=== PATIENT | male | born 1950 | race Caucasian/White ===

== ENCOUNTER → 2016-06-10 | Outpatient (CLI) | payer OTHER ==
[~2016-06-10] VITALS: Ht 175.3 cm; Wt 79.7 kg
[~2016-06-10] MED LIST: ACCURETIC 20-11 EACH PO; ANDROGEL5 GM TD; ASPIR 8181 MG PO; BACTRIM DS TAB1 EACH PO; BYSTOLIC20 MG PO; CARVEDILOL12.5 MG PO; CENTRUM SILVER1 EAC1; CLONIDINE0.1 PO; COUMADIN7.5 MG PO; CRESTOR10 MG PO; CYMBALTA30 MG PO; DILAUDID 4 MG TA4 M1 PO; ENDOCET 10-3251 EACH PO; FENOFIBRATE160 MG PO; GLUCOPHAGE XR750 MG PO; GLUCOPHAGE500 MG PO; HUMALOG100 UNIT/1 SUBQ; HYDROCHLOROTHIA25 M2 PO; INVOKANA300 MG PO; KEPPRA 500 MG500 M1 PO; LANTUS SUBQ; LASIX 40 MG TAB40 M2 PO; LIPITOR 20 MG T20 M1 PO; LISINOPRIL20 MG PO; LYRICA 75 MG CA75 MG PO; LYRICA PO; MIRTAZAPINE7.5 MG PO; MOBIC15 MG PO; MS CONTIN 30 MG30 MG PO; MS CONTIN15 MG PO; MS CONTIN30 MG PO; MS CONTIN60 MG PO; NORVASC 5 MG TAB5 MG PO; NOVOLIN N100 UNIT/1; NOVOLIN N100 UNIT/3 SUBQ; NOVOLIN R100 UNIT/1 SUBQ; NUCYNTA ER250 MG PO; NUCYNTA100 MG PO; OXYCODONE HCL5 M1 PO; OXYCONTIN40 MG PO; PERCOCET 10-321 EACH PO; PERCOCET 7.5-31 EACH PO; POTASSIUM20 PO; PRADAXA150 MG PO; PRADAXA75 MG PO; PROZAC40 MG PO; PYRIDIUM200 MG PO; ROBAXIN 750 MG750 M1 PO; SIMPLY SLEEP25 MG PO; SIMVASTATIN40 MG; SIMVASTATIN40 MG PO; SLO-NIACIN500 MG PO; VANCO IV; VOLTAREN GEL 1100 G1 TOP; ZOLOFT50 MG
--- NOTE | ~2016-06-10 | HPC ---
[facility] [place] [address] PAIN MANAGEMENT CONSULTATION Name: KENNEDY DIMAS ASH Room #: REG CL Melissa.#: [id number] Admission: 06/10/16 Attend Phys: Jostin Ruiz DO Discharge: Date of : 49 Report #: [id number] THIS REPORT FOR: //name// CC: RAQUEL Ruiz The patient is a 65-year-old gentleman, well known to the pain clinic, being treated for lumbar radiculopathy status post decompressive laminectomy, neuropathic pain component, requiring complex medication management for a number of years. Last seen in the pain clinic on 03/21/2016. The patient had had a spinal cord stimulator finally reimplanted at [facility] this past September. Historically, he had had a spinal cord stimulator implanted here at [facility], several years ago, but was promptly explanted due to an infection. The patient was very pleased with the coverage of this stimulator. Last I saw him, but apparently ultimately lost coverage. The [employer] generator itself apparently became dysfunctional. He had weaned off of MS Contin sometime ago, and had started doing water aerobics at the [facility] when I saw him last. We continued him on Lyrica 75 mg at bedtime, and attempted to wean the Percocet. He returns to pain clinic today, we had a moderately long visit, reviewing current issues. He was seen in the pain clinic from 11:02 to 11:30, greater than 50% of this time was spent counseling the patient and reviewing significant interval history. On 05/23/2016, approximately 2 weeks ago, the patient had the generator portion of the spinal cord stimulator replaced. They reimplanted a new [employer] rechargeable generator. The patient notes, he is having little bit trouble connecting with the charging device; however, feels that the coverage is better. Notes the pain remains problematic, rating an 8/10. He is still taking Percocet 10/325 up to 4 a day. But notes pain is primarily low back, aching sensation, exacerbated with walking, some relief lying down and sitting. PHYSICAL EXAMINATION: Shows a 65-year-old gentleman, BMI is 25.9 kilograms per meter squared. Blood pressure is little bit elevated at 182/70, pulse of 70, respirations are 20. Alert and oriented to person, place, and time. Judged to be a reasonable historian. Rises from the chair using the armrest. Gait is tandem. Lumbar flexion is limited. Lower extremity strength is diminished, but symmetric. Straight leg raise is negative. Axial back pain is problematic with motion. Functional assessment tool notes the patient is at high risk for opiate abuse, though he has been stable on baseline medication. He has weaned Lyrica from [address] [facility] [address] [place] [address] PAIN MANAGEMENT CONSULTATION Name: KENNEDY DIMAS Room #: REG APOORVA Fan#: [id number] Admission: 06/10/16 Attend Phys: Jostin Ruiz DO Discharge: Date of : 49 Report #: [id number] (two 75 mg tablets) to 1 at bedtime. He is desirous of continuing to wean agents as tolerated. We reviewed the fact that opiate medications are being used to provide analgesia adequate to support activities of daily living, not attempting to achieve a specific pain score on the 0-10 Visual Analog Scale. The current opiate medications are providing sufficient analgesia to allow the patient to participate in activities of daily living. The patient is not exhibiting any aberrant behavior suggestive of drug diversion. The patient is not having any adverse reactions to medications. The patient is not suffering from daytime somnolence or mental acuity changes. The patient is managing opiate-induced constipation with appropriate kimg-gzd-zgslpai agents and dietary considerations. The patient was counseled on concern for caution with operating a motor vehicle while using opiate medications. A physical exam was performed and the patient's functional status was evaluated. All patients with back pain were advised against the bed rest greater than 4 days and were advised to return to normal activities. Pain score assessment was noted and the treatment plan was reviewed with the patient. All current medications, both prescribed and OTC were reviewed and reconciled on the electronic medical record. Tobacco screening was accomplished and smoking cessation was advised when indicated. BMI was noted and diet/exercise modification was recommended for all patients following outside normal parameters. I reviewed with the patient today their responsibilities to safeguard prescription medications, reviewed their responsibility to utilize medications only as prescribed by the physician. They are to seek and receive pain medications only from 1 physician group ( [facility]). They are to use 1 pharmacy and keep the clinic informed if they change pharmacies. Their responsibilities include making followup visits in a timely fashion and to avoid abrupt discontinuation of medication usage. Their responsibilities further include bringing their medications (bottles from the pharmacy with residual pills) to the visit for possible confirmation of pill counts and the patient understands it is their responsibility to submit to random drug screens to ensure both that the medications prescribed are present, and that no other controlled substances are present. All prescriptions provided today were generated electronically. ASSESSMENT: Lumbar radiculopathy status post decompressive laminectomy, neuropathic pain requiring complex medication management. RECOMMENDATIONS: Discussion with the patient today about therapeutic options. I would like him to continue Percocet 10/325 four a day for one month, and gave him a second prescription to release in 4 weeks, decreasing the dose to 7.5/325 Percocet one tablet up to 4 times a day. [facility] [address] [place] [address] PAIN MANAGEMENT CONSULTATION Name: DIMASKENNEDY Herr Room #: REG CLI M..#: [id number] Admission: 06/10/16 Attend Phys: Jostin Ruiz DO Discharge: Date of : 49 Report #: [id number] We also talked about weaning off of Lyrica, he had been on 150 mg and dropped down to 75 mg at bedtime. He noted no significant change with this, but he is complaining of somewhat neuropathic related pain. With a desire to wean opiates, we have elected to try and perhaps increase this dose a little bit. I gave him a sample of 50 mg Lyrica tablets, a box of 21 such tablets. I told him to start taking 2 tablets at bedtime i.e., 100 mg at bedtime. If this affords a little better overall efficacy, and I allow this to continue to wean opiates, I also offered a prescription for Lyrica 100 mg tablets at bedtime. If, however, he finds no change going from 75 mg to 100 mg of Lyrica, I will have him simply continue the 75 mg tablet. We elected to follow up in 2 months for reevaluation. At that time, he will either be taking 75 or 100 mg Lyrica at bedtime and will be down to Percocet 7.5/325 four a day. Discharged in good and stable condition after a moderately prolonged visit, spent reviewing current issues. Seen from 11:02 to 11:30. Greater than 50% of the 25+ minute visit was spent counseling the patient. Discharged in good and stable condition. I encouraged to continue with range of motion, dietary discretion, exercise, and opiate wean. <ELECTRONICALLY SIGNED> By: Jostin Ruiz DO 06/12/16 0729 1231 13 Jostin Ruiz DO /nt
[2016-06-10 10:50] VITALS: BP 182/70
== END | disposition home or self-care (01) ==
LOC: PAIN 05-31 07:12
DX: M54.16 Radiculopathy, lumbar region (principal); G89.29 Other chronic pain; Z87.891 Personal history of nicotine dependence; Z98.890 Other specified postprocedural states

== ENCOUNTER → 2016-09-19 | Outpatient (CLI) | payer OTHER ==
[~2016-09-19] VITALS: Ht 175.3 cm; Wt 124.7 kg
[~2016-09-19] MED LIST changes: +FISH OIL 1,001000 M2 PO; +NORCO 10-325 T1 EACH PO; +TESTOSTERO200 MG/1 M IM
--- NOTE | ~2016-09-19 | HPC ---
[facility] [address] [place] [address] PAIN MANAGEMENT CONSULTATION Name: KENNEDY DIMAS Room #: REG [facility] MIndio.#: [id number] Admission: 09/19/16 Attend Phys: Jostin Ruiz DO Discharge: Date of : 49 Report #: [id number] THIS REPORT FOR: //name// CC: RAQUEL Ruiz The patient is a pleasant 65-year-old gentleman long known to the pain clinic who has been treated for lumbar radiculopathy status post decompressive laminectomy, neuropathic pain component requiring complex medication management. He had had a spinal cord stimulator at one point a decade ago and had a fairly significant infection, had to have it explanted. He had been managed with high dose opiates. Ultimately, progressed to have a spinal cord stimulator implanted at [facility] ([employer] spinal cord stimulator). He thinks that this is helpful. It is in a "burst" high-frequency mode. He really does not feel a great deal of stimulation, but does think it is helping with his radicular pain. He is having primarily ongoing axial back pain. We had weaned off of much higher loads of opiates subsequent to the implantation. He had been taking MS Contin 30 mg 3 times a day with Nucynta 100 mg 4 times a day. Last visit was 06/10/2016. The patient returns to pain clinic today. We had a moderately prolonged visit from 14:28-14:55, greater than 50% of the 25+ minute visit was spent counseling the patient. He is having some increasing depression issues. Notes pain is quite problematic, rates it 8 or 9 on a 0-10 visual analog scale across the low back. He remains obese, BMI has been gradually escalating, he is up to 40.6 kilograms per meter squared. Poor glucose control with hemoglobin A1c running in the 8's. PHYSICAL EXAMINATION: Shows a 65-year-old gentleman, again 175 cm and 124 kilograms. Blood pressure shows modest systolic hypertension 148/67, pulse 104 , respirations 16. Alert and oriented to person, place and time, judged to be reasonable historian. A little bit of a flat affect today. Rises from chair using armrest. Diffuse tenderness across the low back though gait is tandem. No discrete trigger points are noted. He is tender across the low back, a little more on the right flank where the spinal cord stimulator IPG resides. Lower extremity strength is diminished, but symmetric. Straight leg raise is negative. We reviewed the fact that opiate medications are being used to provide analgesia adequate to support activities of daily living, not attempting to achieve a specific pain score on the 0-10 Visual Analog Scale. The current opiate medications are providing sufficient analgesia to allow the patient to participate in activities of daily living. The patient is not exhibiting any aberrant behavior suggestive of drug diversion. The patient is not having any adverse reactions to medications. The patient is not suffering from daytime somnolence or mental acuity changes. The patient is managing opiate-induced constipation with appropriate fnut-kaf-ukrbwbi agents and dietary [address] [address] PAIN MANAGEMENT CONSULTATION Name: KENNEDY DIMAS Room #: REG CLI Mita#: [id number] Admission: 09/19/16 Attend Phys: Jostin Ruiz DO Discharge: Date of : 49 Report #: [id number] considerations. The patient was counseled on concern for caution with operating a motor vehicle while using opiate medications. A physical exam was performed and the patient's functional status was evaluated. All patients with back pain were advised against the bed rest greater than 4 days and were advised to return to normal activities. Pain score assessment was noted and the treatment plan was reviewed with the patient. All current medications, both prescribed and OTC were reviewed and reconciled on the electronic medical record. Tobacco screening was accomplished and smoking cessation was advised when indicated. BMI was noted and diet/exercise modification was recommended for all patients following outside normal parameters. I reviewed with the patient today their responsibilities to safeguard prescription medications, reviewed their responsibility to utilize medications only as prescribed by the physician. They are to seek and receive pain medications only from 1 physician group ( [facility]). They are to use 1 pharmacy and keep the clinic informed if they change pharmacies. Their responsibilities include making followup visits in a timely fashion and to avoid abrupt discontinuation of medication usage. Their responsibilities further include bringing their medications (bottles from the pharmacy with residual pills) to the visit for possible confirmation of pill counts and the patient understands it is their responsibility to submit to random drug screens to ensure both that the medications prescribed are present, and that no other controlled substances are present. All prescriptions provided today were generated electronically. ASSESSMENT: Chronic pain syndrome requiring complex medication management in a 65-year-old gentleman status post lumbar decompressive laminectomy with chronic axial back pain, lumbar radiculopathy, though the latter component reasonably well controlled with spinal cord stimulator. RECOMMENDATION: Discussion with the patient today about therapeutic option. He has been on Percocet for some time now, I had weaned from 10-7.5/325 four a day. We have been titrating Lyrica up and down, ultimately looks like 100 mg is giving him some good efficacy. Discussion about ongoing pain concerns. We have elected to trial an opiate rotation, we will switch from Percocet 7.5/325 to hydrocodone 10/325. I have taken the liberty of writing for 2 months of this medication. I have him follow up in about 3 weeks; if it is not efficacious, we will probably go back to Percocet or follow up in 2 months if he is doing reasonably well with current medication. We did spend a good deal of time counseling the patient regarding anxiety and depression associated with just overall sense of loss from functional [facility] [address] [place] [address] PAIN MANAGEMENT CONSULTATION Name: KENNEDY DIMAS ASH Room #: REG CLTrixie Torres.#: [id number] Admission: 09/19/16 Attend Phys: Jostin Ruiz DO Discharge: Date of : 49 Report #: [id number] standpoint. Encouraged the patient to continue with activities that bring garrett including golfing and interacting with his grandchildren. Discharged in good and stable condition. <ELECTRONICALLY SIGNED> By: Jostin Ruiz DO 09/20/16 1308 0737 0801 Jostin Ruiz DO /nt
[2016-09-19 14:22] VITALS: BP 148/67
== END ==
LOC: PAIN 07:33
DX: M54.16 Radiculopathy, lumbar region (principal); M96.1 Postlaminectomy syndrome, not elsewhere classified; I10 Essential (primary) hypertension; G89.4 Chronic pain syndrome; Z87.891 Personal history of nicotine dependence

== ENCOUNTER → 2016-12-19 | Outpatient (CLI) | payer OTHER ==
[~2016-12-19] VITALS: Ht 175.3 cm; Wt 126.9 kg
[~2016-12-19] MED LIST changes: +OXYCONTIN15 MG PO; +PERCOCET 5-3251 EACH PO; +PERCOCET PO; +XARELTO20 MG PO
--- NOTE | ~2016-12-19 | HPC ---
[facility] [address] [place] [address] PAIN MANAGEMENT CONSULTATION Name: KENNEDY DIMAS Room #: REG CL Melissa.#: [id number] Admission: 12/19/16 Attend Phys: Jostin Ruiz DO Discharge: Date of : 49 Report #: [id number] THIS REPORT FOR: //name// CC: RAQUEL Ruiz The patient is a very pleasant 65-year-old gentleman, had long been treated by the pain clinic for symptomatic lumbar radiculopathy status post decompressive laminectomy with ongoing neuropathic pain. Somewhat lost to follow up. He had a spinal cord stimulator reimplanted at [facility] ([employer] stimulator) in September of 2015. Returned to the pain clinic May. We have been treating with some mild opiate analgesics. He had prior been on fairly high dose opiates, MS Contin 30 mg 3 times a day and Nucynta 100 mg 4 times a day. At last visit 09/19/2016, the patient was simply taking some Percocet 7.5/325, it was losing efficacy, I rotated the hydrocodone 10/325. He returns to pain clinic today noting pain continues to be problematic, rates the pain at 7-8 on a VAS. Since we saw him last, he was hospitalized for DVT in November at an [facility]. Notes pain is exacerbated with walking and standing, gets some relief sitting or lying. Continue to use a spinal cord stimulator. He has recently started using a walker since the hospitalization for DVT. He uses it to offload some pain from the back. PHYSICAL EXAMINATION: Shows obese 65-year-old gentleman, BMI is 41.3 kilograms per meter squared. Vital signs stable as noted in the EMR. Rises from chair using the armrests, antalgic gait, diffuse tenderness across the low back. Lower extremity strength is diminished, but symmetrically so. RECOMMENDATION: We discussed his therapeutic options at length today. In fact, he was seen from approximately 10:30-11:00 a.m., greater than 30% of this time was spent counseling the patient. He is not desirous of going back to MS Joana, felt that morphine caused significant cognitive impairment. I am loathe to escalate opiate use, but he does have ongoing pain needs that are not being met at present. Lyrica 100 mg at bedtime seems to be efficacious, he is using 7.5/325 Percocet 4 a day with nominal efficacy. After discussion today, we have elected to a trial OxyContin 15 mg b.i.d. with Percocet 5/325 for breakthrough pain. Limit 120 tablets for 30 days. I reviewed the opiate risk including habituation, tolerance, daytime somnolence, mental acuity changes, constipation. 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 I have taken the liberty of writing for 2 months of the revised medication [address] [address] PAIN MANAGEMENT CONSULTATION Name: KENNEDY DIMAS Room #: REG APOORVA Fan#: [id number] Admission: 12/19/16 Attend Phys: Jostin Ruiz, DO Discharge: Date of : 49 Report #: [id number] (OxyContin 15 mg b.i.d. with Percocet 5/325 up to 4 a day). Follow up in 2 months. If however, agents are not working we will have him follow up in 3 weeks and bring the "4-week release" prescription back. We will likely trial Nucynta extended release as the long-acting opiate at that point if indicated. <ELECTRONICALLY SIGNED> By: Jostin Ruiz DO 12/23/16 0746 1543 [id number] Jostin Ruiz DO /nt
[2016-12-19 11:08] VITALS: BP 125/64
== END | disposition home or self-care (01) ==
LOC: PAIN 11-15 11:10
DX: M54.16 Radiculopathy, lumbar region (principal); G89.29 Other chronic pain; G40.909 Epilepsy, unspecified, not intractable, without status epilepticus; Z98.890 Other specified postprocedural states; Z79.891 Long term (current) use of opiate analgesic; Z87.891 Personal history of nicotine dependence; Z79.82 Long term (current) use of aspirin; Z79.899 Other long term (current) drug therapy; Z79.4 Long term (current) use of insulin

== ENCOUNTER → 2017-02-20 | Outpatient (CLI) | payer OTHER ==
[~2017-02-20] VITALS: Ht 175.3 cm; Wt 127.5 kg
--- NOTE | ~2017-02-20 | HPC ---
[facility] [address] [place] [address] PAIN MANAGEMENT CONSULTATION Name: JUDIEKENNEDY ALEMAN Room #: REG CL M..#: [id number] Admission: 02/20/17 Attend Phys: Jostin Ruiz DO Discharge: Date of : 49 Report #: [id number] THIS REPORT FOR: //name// CC: RAQUEL Ruiz The patient is a 66-year-old gentleman well known to pain clinic, being treated for neuropathic pain, chronic pain syndrome requiring high-risk complex medication management status post lumbar decompressive laminectomy. He has a spinal cord stimulator in place, placed in at [facility]. He is using a walker for the past 4-5 months, nearly 100% of the time (states he does get up to go to the bathroom without the walker, but uses it pretty much predominantly otherwise). Uses the stimulator 24 hours a day, had been programmed to high frequency hence no paresthesias, has to charge it weekly. He has been using OxyContin 15 mg 1 in the morning and Percocet 5/325 four a day. I had written for b.i.d., OxyContin for some reason the pharmacist has only filled 30 tablets (?). He says he has become much more sedentary. Pain is primarily in primarily low back, right greater than left hips. PHYSICAL EXAMINATION: Shows 66-year-old gentleman, BMI is up to 41.5 kilograms per meter squared. He is alert and oriented to person, place and time. 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 This is healing nicely. Blood pressure 154/64, pulse 73, respirations are 20. Rises from chair using armrests. Diffuse antalgic gait, general deconditioning. We reviewed the fact that opiate medications are being used to provide analgesia adequate to support activities of daily living, not attempting to achieve a specific pain score on the 0-10 Visual Analog Scale. The current opiate medications are providing sufficient analgesia to allow the patient to participate in activities of daily living. The patient is not exhibiting any aberrant behavior suggestive of drug diversion. The patient is not having any adverse reactions to medications. The patient is not suffering from daytime somnolence or mental acuity changes. The patient is managing opiate-induced constipation with appropriate odgr-vhc-bldsawf agents and dietary considerations. The patient was counseled on concern for caution with operating a motor vehicle while using opiate medications. A physical exam was performed and the patient's functional status was evaluated. All patients with back pain were advised against the bed rest greater than 4 days and were advised to return to normal activities. Pain score assessment was noted and the treatment plan was reviewed with the patient. All current medications, both prescribed and OTC were reviewed and reconciled on the electronic medical record. Tobacco screening was accomplished and smoking cessation was advised when indicated. BMI was noted and diet/exercise modification was recommended for all patients following outside normal parameters. I reviewed with the patient today their responsibilities to safeguard prescription medications, reviewed their responsibility to utilize medications [address] [address] PAIN MANAGEMENT CONSULTATION Name: KENNEDY DIMAS Room #: REG APOORVA Fan#: [id number] Admission: 02/20/17 Attend Phys: Jostin Ruiz DO Discharge: Date of : 49 Report #: [id number] only as prescribed by the physician. They are to seek and receive pain medications only from 1 physician group ( [facility]). They are to use 1 pharmacy and keep the clinic informed if they change pharmacies. Their responsibilities include making followup visits in a timely fashion and to avoid abrupt discontinuation of medication usage. Their responsibilities further include bringing their medications (bottles from the pharmacy with residual pills) to the visit for possible confirmation of pill counts and the patient understands it is their responsibility to submit to random drug screens to ensure both that the medications prescribed are present, and that no other controlled substances are present. All prescriptions provided today were generated electronically. ASSESSMENT: Status post decompressive lumbar laminectomy, neuropathic pain requiring high-risk complex medication management. RECOMMENDATIONS: 1. Buccal swap today, no aberrant behavior suggestive for drug diversion, simply complying with opiate consent to treat contract. 2. Long discussion with the patient today about increasing physical activity. Suggest he start with water aerobics. The [facility] is actually fairly close to his home. I talked about getting in the water and simply walking for 20-30 minutes. This will hopefully start reconditioning patient. He is generally deconditioned and is becoming weaker with his sedentary lifestyle. If required, we can increase his opiate analgesics some, is taking Percocet 5/325 up to 4 a day; however, I would like to try and keep that p.r.n. medicine unchanged. We will encourage pharmacy to fill the prescription as ordered, providing him with OxyContin 15 mg 60 tablets to take b.i.d. This will affectively increase his overall opiate load from 35 to 50 back to what I have prescribed and assume he was taking. We will continue Lyrica unchanged 100 mg at bedtime. The patient was discharged in good and stable condition. Follow up in 2 months for reevaluation. <ELECTRONICALLY SIGNED> By: Jostin Ruiz DO 02/21/17 0657 1532 46 Jostin Ruiz DO /sujatha
[2017-02-20 11:04] VITALS: BP 154/64
== END | disposition home or self-care (01) ==
LOC: PAIN 07:04
DX: Z76.0 Encounter for issue of repeat prescription (principal); G89.4 Chronic pain syndrome; Z98.890 Other specified postprocedural states; Z79.891 Long term (current) use of opiate analgesic; Z85.828 Personal history of other malignant neoplasm of skin; Z97.8 Presence of other specified devices; Z87.891 Personal history of nicotine dependence; Z79.82 Long term (current) use of aspirin; Z79.899 Other long term (current) drug therapy; Z79.4 Long term (current) use of insulin

== ENCOUNTER → 2017-06-30 | Outpatient (CLI) | payer OTHER ==
[~2017-06-30] VITALS: Ht 175.3 cm; Wt 127.0 kg
[~2017-06-30] MED LIST changes: +AMLODIPINE BESY10 MG PO; +BUPROPION HCL150 M1 PO; +CARDURA4 MG PO; +HYDRALAZINE HC100 MG PO; +KLOR-CON M2020 MEQ PO; +METOLAZONE 2.52.5 M1 PO; +OXYCODONE HCL E20 MG PO
--- NOTE | ~2017-06-30 | HPC ---
[facility] [place] [address] PAIN MANAGEMENT CONSULTATION Name: JUDIEKENNEDY ALEMAN [facility].#: [id number] Admission: 06/30/17 Attend Phys: Jostin Ruiz DO Discharge: Date of : 49 Report #: [id number] THIS REPORT FOR: //name// CC: RAQUEL Ruiz The patient is a 66-year-old gentleman well known to the pain clinic being treated for neuropathic pain, chronic pain syndrome, axial and lumbar radicular pain, status post decompressive laminectomy requiring high risk complex medication management. Last seen in the pain clinic 04/23/2017. He was seen by my partner, Dr. Reynaldo Hobson, continued on Percocet 5/325 up to 120 tablets for 30 days and OxyContin 15 mg b.i.d. The patient returns to the pain clinic today. He had been trying to work out [employer], but states that in the past 3 or 4 months, the pain has been getting worse. He does use a walker to get around. Spinal cord stimulator implanted at [facility] has been somewhat effective. He has been struggling with total body edema, worse in the lower extremities. Apparently, it was felt that his Plavix was the primary culprit. This was stopped. He was converted over to Coumadin. Edema is getting better, but still present. Last drug screen accomplished on 06/26/2015 was positive for prescribed medications. Returns to the pain clinic today. Again noting pain seems to be getting a little bit worse. Rates his subjective pain score 8 today and varies from 6-9. He has significant arthritis affecting bilateral upper and lower extremities (osteoarthritis). He is overweight with a BMI of 41.3 kilograms per meter squared. Vital signs are otherwise stable. He has not fallen in the last 3 months. He is using a walker. Again he has been rotated warfarin for his anticoagulant. He is hypertensive, medication list was reconciled. Opiate risk assessment tool does score the patient in the high risk category though he has been stable on current medications. We did elect to repeat a buccal drug swab today given that it has been greater than a year since our last random study. The patient rises from chair using armrest, antalgic gait, diffuse tenderness across the low back. Lower extremity strength is symmetric. Straight leg raise is negative bilaterally. Diffuse tenderness across the low back. We reviewed the fact that opiate medications are being used to provide analgesia adequate to support activities of daily living, not attempting to achieve a specific pain score on the 0-10 Visual Analog Scale. The current opiate medications are providing sufficient analgesia to allow the patient to participate in activities of daily living. The patient is not exhibiting any aberrant behavior suggestive of drug diversion. The patient is not having any adverse reactions to medications. The patient is not suffering from daytime somnolence or mental acuity changes. The patient is managing opiate-induced [address] [address] PAIN MANAGEMENT CONSULTATION Name: KENNEDY DIMAS Room #: REG APOORVA Fan#: [id number] Admission: 06/30/17 Attend Phys: Jostin Ruiz DO Discharge: Date of : 48 Report #: [id number] constipation with appropriate phye-peb-nfehdfi agents and dietary considerations. The patient was counseled on concern for caution with operating a motor vehicle while using opiate medications. A physical exam was performed and the patient's functional status was evaluated. All patients with back pain were advised against the bed rest greater than 4 days and were advised to return to normal activities. Pain score assessment was noted and the treatment plan was reviewed with the patient. All current medications, both prescribed and OTC were reviewed and reconciled on the electronic medical record. Tobacco screening was accomplished and smoking cessation was advised when indicated. BMI was noted and diet/exercise modification was recommended for all patients following outside normal parameters. I reviewed with the patient today their responsibilities to safeguard prescription medications, reviewed their responsibility to utilize medications only as prescribed by the physician. They are to seek and receive pain medications only from 1 physician group ( [facility]). They are to use 1 pharmacy and keep the clinic informed if they change pharmacies. Their responsibilities include making followup visits in a timely fashion and to avoid abrupt discontinuation of medication usage. Their responsibilities further include bringing their medications (bottles from the pharmacy with residual pills) to the visit for possible confirmation of pill counts and the patient understands it is their responsibility to submit to random drug screens to ensure both that the medications prescribed are present, and that no other controlled substances are present. All prescriptions provided today were generated electronically. ASSESSMENT: Axial back pain, lumbar radiculopathy, status post decompressive laminectomy, neuropathic pain requiring high risk complex medication management. The patient with spinal cord stimulator in place. RECOMMENDATION: 1. Continue walker and try to increase physical activity, perhaps even return to the [employer]. 2. Continue Percocet 5/325 for breakthrough pain. We will increase OxyContin 15 mg b.i.d. to 20 mg b.i.d., increasing from 30 to 40 mg, a mere 33% increase in his overall opiate load. This will enable him to take up to 50 mg oxycodone or 75 mEq of morphine a day. He had been on much higher doses in the past. We will continue Lyrica 100 mg t.i.d. I have taken the liberty of writing for 2 months of current medication. Follow up at that time, earlier if needed. <ELECTRONICALLY SIGNED> By: Jostin Ruiz DO 07/02/17 0724 [id number] Jostin Ruiz DO /nt
[2017-06-30 13:31] VITALS: BP 155/64
== END ==
LOC: PAIN 07:39
DX: M54.16 Radiculopathy, lumbar region (principal); Z98.890 Other specified postprocedural states

== ENCOUNTER → 2017-09-01 | Outpatient (CLI) | payer OTHER ==
[~2017-09-01] VITALS: Ht 175.3 cm; Wt 124.9 kg
[~2017-09-01] MED LIST changes: -KLOR-CON M2020 MEQ PO
--- NOTE | ~2017-09-01 | HPC ---
[facility] [place] [address] PAIN MANAGEMENT CONSULTATION Name: JUDIEKENNEDY ALEMAN Room #: REG CL MCash.#: [id number] Admission: 09/01/17 Attend Phys: Jostin Ruiz DO Discharge: Date of : 49 Report #: [id number] THIS REPORT FOR: //name// CC: RAQUEL Ruiz DATE OF SERVICE: 09/01/2017 The patient is a very pleasant 66-year-old gentleman, well known to pain clinic, treated for neuropathic pain, chronic pain syndrome, axial back pain status post lumbar decompressive laminectomy, requiring high risk complex medication management. He was last seen in the pain clinic 06/30/2017. The patient was continued on his baseline medication including long acting oxycodone, increased from 15 to 20 mg b.i.d. back in June. Percocet 5/325 one tablet 3-4 times a day, 100 tablets for 30 days. Last random drug screen 06/30/2017, was positive for prescribed medications including oxycodone and gabapentin. He returns to pain clinic today. He notes current medications are enable him to participate in some activities with general improvement of pain, notes his pain is an 8 on a VAS today, is exacerbated with weather changes. He was questioning today if a fair bit of his back pain was coming from facet DJD, whether or not it would be reasonable to consult a filler mixer. I am unaware of what further treatments the filler mixer may offer; however, I certainly think that there is no downside in referring to rheumatology to get another opinion on possible disease-modifying therapeutic intervention for axial back pain in this 66-year-old gentleman who has had a lumbar fusion, has had a stormy course, having had a spinal cord stimulator implanted by myself now some 8 years ago with what turned out to be a sterile abscess prompting explantation. He ultimately had the spinal cord stimulator reimplanted by [facility] 1-2 years ago. He has been stable on low dose opiate enable him to participate in activities of daily living, though again does note he is fairly sedentary overall. Notes pain is primarily in the thoracolumbar area mid to low back, diffuse low back pain, right greater than left. He struggles with lower extremity pretibial edema. We have tried to wean his dose of Lyrica, though 100 mg at bedtime seems to be quite helpful for his ongoing chronic pain issues. PHYSICAL EXAMINATION: Shows a 66-year-old gentleman, morbidly obese with a BMI of 40.7 kg/m2 (5 feet 9 inches, 275 pounds). Blood pressure 144/70, pulse 68, respirations are 20, room air oxygen saturation 96%. Subjective pain score is 8 on a VAS. He has not fallen in the last 3 months, though he does use a walker to help offload back pain. He is anticoagulated with Coumadin. He is hypertensive, medication list was reconciled today. His opiate consent to treat [address] [address] PAIN MANAGEMENT CONSULTATION Name: KENNEDY DIMAS Room #: REG APOORVA Fan#: [id number] Admission: 09/01/17 Attend Phys: Jostin Ruiz DO Discharge: Date of : 48 Report #: [id number] contract was reviewed today. The patient rises from chair using armrest, moderately antalgic gait. Lower extremity strength is generally preserved, again +2-3 pretibial edema bilaterally. Straight leg raise is negative. Axial back pain with no discrete trigger points. We have no recent CT of the lumbar spine (MRI contraindicated due to the presence of the stimulator). We reviewed the fact that opiate medications are being used to provide analgesia adequate to support activities of daily living, not attempting to achieve a specific pain score on the 0-10 Visual Analog Scale. The current opiate medications are providing sufficient analgesia to allow the patient to participate in activities of daily living. The patient is not exhibiting any aberrant behavior suggestive of drug diversion. The patient is not having any adverse reactions to medications. The patient is not suffering from daytime somnolence or mental acuity changes. The patient is managing opiate-induced constipation with appropriate dxzi-rqn-axwbjyj agents and dietary considerations. The patient was counseled on concern for caution with operating a motor vehicle while using opiate medications. A physical exam was performed and the patient's functional status was evaluated. All patients with back pain were advised against the bed rest greater than 4 days and were advised to return to normal activities. Pain score assessment was noted and the treatment plan was reviewed with the patient. All current medications, both prescribed and OTC were reviewed and reconciled on the electronic medical record. Tobacco screening was accomplished and smoking cessation was advised when indicated. BMI was noted and diet/exercise modification was recommended for all patients following outside normal parameters. I reviewed with the patient today their responsibilities to safeguard prescription medications, reviewed their responsibility to utilize medications only as prescribed by the physician. They are to seek and receive pain medications only from 1 physician group ( [facility]). They are to use 1 pharmacy and keep the clinic informed if they change pharmacies. Their responsibilities include making followup visits in a timely fashion and to avoid abrupt discontinuation of medication usage. Their responsibilities further include bringing their medications (bottles from the pharmacy with residual pills) to the visit for possible confirmation of pill counts and the patient understands it is their responsibility to submit to random drug screens to ensure both that the medications prescribed are present, and that no other controlled substances are present. All prescriptions provided today were generated electronically. [address] [address] PAIN MANAGEMENT CONSULTATION Name: KENNEDY DIMAS [facility] [id number] Admission: 09/01/17 Attend Phys: Jostin Ruiz DO Discharge: Date of : 48 Report #: [id number] ASSESSMENT: Chronic axial back pain status post lumbar decompressive laminectomy, neuropathic pain requiring complex medication management, the patient has been stable on baseline medications. RECOMMENDATION: Renew oxycodone extended release 20 mg b.i.d., Percocet 5/325 one tablet 3-4 times a day, limit 100 tablets for 30 days; continue Lyrica 100 mg at bedtime, I have taken the liberty of writing for 2 months of the scheduled narcotic agent and a 90-day prescription for Lyrica. Follow up in 2 months for reevaluation. We will strongly recommend that Dr. Yuan refer him to Rheumatology for further evaluation to ensure that there are no other treatable options that we were overlooking. <ELECTRONICALLY SIGNED> By: Jostin Ruiz DO 09/03/17 0819 [id number] [id number] Jostin Ruiz, DO /nt
[2017-09-01 09:44] VITALS: BP 144/70
== END ==
LOC: PAIN 07:01
DX: G89.29 Other chronic pain (principal); M54.5 Low back pain; M96.1 Postlaminectomy syndrome, not elsewhere classified; M79.2 Neuralgia and neuritis, unspecified; Z79.899 Other long term (current) drug therapy

== ENCOUNTER → 2017-10-27 | Outpatient (CLI) | payer OTHER ==
[~2017-10-27] VITALS: Ht 175.3 cm; Wt 127.9 kg
[~2017-10-27] MED LIST changes: +KLOR-CON M2020 MEQ PO
--- NOTE | ~2017-10-27 | HPC ---
[facility] [address] [place] [address] PAIN MANAGEMENT CONSULTATION Name: KENNEDY DIMAS ASH [facility] #: [facility] [id number] Admission: 10/27/17 Attend Phys: Jostin Ruiz DO Discharge: Date of : 48 Report #: [id number] THIS REPORT FOR: //name// CC: RAQUEL JONES Physician staff Jostin Ruiz The patient is a pleasant 66-year-old gentleman, long treated for symptomatic lumbar radiculopathy, status post decompressive laminectomy, chronic pain syndrome requiring complex medication management, osteoarthritis affecting his hands. Last visit 09/01/2017. We will continue the patient on OxyContin 20 mg b.i.d., Percocet 5/325, one tablet 3-4 times a day and Lyrica 100 mg at bedtime. He returns to pain clinic today. Notes he is doing as well as can be expected. I had initially implanted spinal cord stimulator back in 2009, but it was taken out in retrospect of what was deemed to be a noninfectious sterile abscess. Apparently, he had a number of these in his abdomen where he was giving himself insulin injections. Nonetheless, we managed medically for quite some time. He ultimately returned to [facility] where they reimplanted a high frequency spinal cord stimulator, which he feels does give him some relief. Today, he notes his functional status is getting less and less. He tells me he has recently been diagnosed with congestive heart failure, albeit with a preserved ejection fraction. He is following up with a bogger operator regarding management concerns. He notes his pain is a 7 on a VAS, pain is across the low back, exacerbated with standing and walking. PHYSICAL EXAMINATION: Unchanged. Pleasant 66-year-old gentleman, morbidly obese with a BMI of 41.6 kilograms per meter squared. Blood pressure 142/62, pulse 79 and respirations 18. Rises from chair with difficulty. Antalgic gait, diffuse tenderness across the low back. Lower extremity strength is adequate. We reviewed the fact that opiate medications are being used to provide analgesia adequate to support activities of daily living, not attempting to achieve a specific pain score on the 0-10 Visual Analog Scale. The current opiate medications are providing sufficient analgesia to allow the patient to participate in activities of daily living. The patient is not exhibiting any aberrant behavior suggestive of drug diversion. The patient is not having any adverse reactions to medications. The patient is not suffering from daytime somnolence or mental acuity changes. The patient is managing opiate-induced constipation with appropriate nvlt-sio-qlmfomc agents and dietary considerations. The patient was counseled on concern for caution with operating a motor vehicle while using opiate medications. [address] [address] PAIN MANAGEMENT CONSULTATION Name: KENNEDY DIMAS Room #: REG APOORVA Fan#: [id number] Admission: 10/27/17 Attend Phys: Jostin Ruiz DO Discharge: Date of : 48 Report #: [id number] A physical exam was performed and the patient's functional status was evaluated. All patients with back pain were advised against the bed rest greater than 4 days and were advised to return to normal activities. Pain score assessment was noted and the treatment plan was reviewed with the patient. All current medications, both prescribed and OTC were reviewed and reconciled on the electronic medical record. Tobacco screening was accomplished and smoking cessation was advised when indicated. BMI was noted and diet/exercise modification was recommended for all patients following outside normal parameters. I reviewed with the patient today their responsibilities to safeguard prescription medications, reviewed their responsibility to utilize medications only as prescribed by the physician. They are to seek and receive pain medications only from 1 physician group ( [facility]). They are to use 1 pharmacy and keep the clinic informed if they change pharmacies. Their responsibilities include making followup visits in a timely fashion and to avoid abrupt discontinuation of medication usage. Their responsibilities further include bringing their medications (bottles from the pharmacy with residual pills) to the visit for possible confirmation of pill counts and the patient understands it is their responsibility to submit to random drug screens to ensure both that the medications prescribed are present, and that no other controlled substances are present. All prescriptions provided today were generated electronically. Last random drug screen on 06/30/2017 is positive for prescribed medications. ASSESSMENT: Chronic axial back pain, lumbar radiculopathy requiring complex medication management, status post decompressive laminectomy, component of osteoarthritis affecting hands. He has not seen a fleet technician yet. RECOMMENDATION: Continue OxyContin 20 mg b.i.d., Percocet 5/325 one tablet 3-4 times a day, limit 100 tablets for 30 days. The patient is at just immediately below the 90 mg morphine equivalent threshold. Stable on these medications. We encouraged increased activity. Consider water exercise. Stressed that we would like to avoid escalating opiate at this point. Discharged in good and stable condition. Follow up with Dr. Reynaldo Hobson, he has seen him several times in my absence. <ELECTRONICALLY SIGNED> By: Jostin Ruiz DO 10/29/17 0800 [id number] Jostin Ruiz DO /nt
[2017-10-27 10:11] VITALS: BP 142/62; BP 180/72
== END ==
LOC: PAIN 10-02 10:35
DX: G89.29 Other chronic pain (principal); M54.5 Low back pain; M54.16 Radiculopathy, lumbar region; M54.89 Other dorsalgia; M19.042 Primary osteoarthritis, left hand; M19.041 Primary osteoarthritis, right hand; F11.90 Opioid use, unspecified, uncomplicated; Z79.899 Other long term (current) drug therapy; Z87.891 Personal history of nicotine dependence

== ENCOUNTER → 2017-12-31 | Outpatient (CLI) | payer OTHER ==
[~2017-12-31] VITALS: Ht 175.3 cm; Wt 126.0 kg
[2017-12-31 13:14] VITALS: BP 191/81
== END ==
LOC: PAIN 07:05
DX: M54.5 Low back pain (principal); G89.29 Other chronic pain; Z79.899 Other long term (current) drug therapy

== ENCOUNTER → 2018-03-04 | Outpatient (CLI) | payer OTHER ==
[~2018-03-04] VITALS: Ht 175.3 cm; Wt 126.4 kg
--- NOTE | ~2018-03-04 | HPC ---
[facility] [address] [address] PAIN MANAGEMENT CONSULTATION Name: KENNEDY DIMAS [facility] [id number] Admission: 03/04/18 Attend Phys: Wandy Smiley Discharge: Date of : 48 Report #: [id number] THIS REPORT FOR: //name// CC: Wandy Hobson MD Physician staff DATE OF SERVICE: 03/04/2018 CHIEF COMPLAINT: Here for medication renewal for his lower back pain, lumbar radiculopathy. HISTORY OF PRESENT ILLNESS: This is a very pleasant 67-year-old male, previously seen by Dr. Jostin Ruiz and Dr. Aidan Hobson. He is a pleasant gentleman with a long history of lumbar sympathetic radiculopathy. He is status post lumbar decompression laminectomy. He has chronic pain syndrome. He is managed with chronic opioids. He states that he has had increasing lower back pain recently and he has been out of his medicines for about a week because he was taking about 4 times a day his short-acting medications, which Dr. Jostin Ruiz tried to decrease him to 3pills a day, occasionally 4 times a day, but the patient was unable to do that successfully due to increasing pain in his lower back and legs, so he was taking 4 tablets a day. The patient requests to go back to his previous dose of oxycodone 5/325 four a day and continue on his OxyContin 20 mg twice a day. The patient states that that was helpful with his pain in relieving it. ALLERGIES: The patient has no known drug allergies. CURRENT MEDICATIONS: Oxycodone 5/325 mg, OxyContin 20 mg p.o. twice a day, Lyrica 100 mg once a day, potassium, amlodipine, Cardura, hydralazine, Lasix, Coumadin, bupropion, fish oil, Zocor, Coreg, Crestor, insulin regular and NPH and Zoloft. The patient's PQRS, the patient has a history of osteoarthritis in his upper and lower extremities bilaterally. Denies rheumatoid arthritis. 2. The patient is 5 feet 9 inches, weight 278, BMI is 41. 3. Vital signs, blood pressure 173/67, pulse of 75, respirations 20, oxygen sat is 95%. The patient's pain score is of 8/10. 4. Fall risk. Dizziness is denied at this time and does not need any help walking or standing and has not fallen in the last 3 months. 5. The patient is on Coumadin for blood thinner. 6. He does have a history of hypertension. 7. The patient is on opioid therapy greater than 6 weeks and does have opioids on contract on the chart. [address] [address] PAIN MANAGEMENT CONSULTATION Name: KENNEDY DIMAS Room #: REG CLI Mita#: [id number] Admission: 03/04/18 Attend Phys: Wandy Smiley Discharge: Date of : 48 Report #: [id number] 8. The patient's risk assessment tool was low. 9. Functional assessment is 40/70. 10. Denies any recreational drug use. He states that he is a former smoker and does not use alcohol presently. [place] and [place] drug PDMPs were checked and the patient is appropriate with his prescribing doctor is only Dr. Aidan Hobson and no apparent aberrant use from any other doctors. PHYSICAL EXAMINATION: GENERAL: The patient is a well-developed, well-nourished gentleman that appears his stated age. He is alert and oriented x3. He does use a cane to walk with. NECK: Without JVD. EXTREMITIES: Upper motor strength judged to be 4/5 in his muscle groups. The patient has pain and discomfort in his right hip as well as in his back and legs. The patient does have scars in his lower portion of his back. HEENT: Normocephalic, atraumatic. Extraocular eye muscles are intact. Mucous members are moist. Hearing is intact. IMPRESSION: 1. Symptomatic lumbar radiculopathy, history with status post lumbar decompression laminectomy. 2. Chronic pain syndrome requiring complex medical management. 3. Osteoarthritis affecting his hands, knees and hips. 4. Hypertension. 5. Type 2 diabetes. 6. Sepsis. 7. Degenerative joint disease, spinal stenosis. 8. Pancreatitis. 9. Deep vein thrombosis of his right leg. 10. Inferior vena cava filter. We reviewed the fact that opiate medications are being used to provide analgesia adequate to support activities of daily living, not attempting to achieve a specific pain score on the 0-10 Visual Analog Scale. The current opiate medications are providing sufficient analgesia to allow the patient to participate in activities of daily living. The patient is not exhibiting any aberrant behavior suggestive of drug diversion. The patient is not having any adverse reactions to medications. The patient is not suffering from daytime somnolence or mental acuity changes. The patient is managing opiate-induced constipation with appropriate qofx-kfw-hlluyiv agents and dietary considerations. The patient was counseled on concern for caution with operating a motor vehicle while using opiate medications. A physical exam was performed and the patient's functional status was evaluated. All patients with back pain were advised against the bed rest greater than 4 [facility] [address] [place] [address] PAIN MANAGEMENT CONSULTATION Name: KENNEDY DIMAS Room #: REG [facility].#: [id number] Admission: 03/04/18 Attend Phys: Wandy Smiley Discharge: Date of : 48 Report #: [id number] days and were advised to return to normal activities. Pain score assessment was noted and the treatment plan was reviewed with the patient. All current medications, both prescribed and OTC were reviewed and reconciled on the electronic medical record. Tobacco screening was accomplished and smoking cessation was advised when indicated. BMI was noted and diet/exercise modification was recommended for all patients following outside normal parameters. I reviewed with the patient today their responsibilities to safeguard prescription medications, reviewed their responsibility to utilize medications only as prescribed by the physician. They are to seek and receive pain medications only from 1 physician group ( [facility]). They are to use 1 pharmacy and keep the clinic informed if they change pharmacies. Their responsibilities include making followup visits in a timely fashion and to avoid abrupt discontinuation of medication usage. Their responsibilities further include bringing their medications (bottles from the pharmacy with residual pills) to the visit for possible confirmation of pill counts and the patient understands it is their responsibility to submit to random drug screens to ensure both that the medications prescribed are present, and that no other controlled substances are present. All prescriptions provided today were generated electronically. PLAN: We discussed treatment options with the patient today. We elected to continue his medication management with a variation for his medications of OxyContin 20 mg one p.o. b.i.d. #60 was given for today and 4-week release, his oxycodone 5/325 mg 4 times a day #120 was given, which is at increase today and 4 weeks, Lyrica 100 mg 1 p.o. at bedtime, #90 tablets were given with one additional refill. It is a total of a 6-month supply for this patient. The patient will return to our clinic in 2 months based on his MMEs of 90 mEq of morphine, and the patient is agreeable with this plan of care and understands this and to make a timely appointment, so he does not run out of medications in the future. The patient was seen in collaboration with Dr. Aidan Hobson. <ELECTRONICALLY SIGNED> By: Wandy Smiley 03/05/18 0720 [id number] Wandy Smiley /nt
[2018-03-04 10:45] VITALS: BP 173/67
== END ==
LOC: PAIN 07:13
DX: M54.16 Radiculopathy, lumbar region (principal); M48.02 Spinal stenosis, cervical region; M19.041 Primary osteoarthritis, right hand; M19.042 Primary osteoarthritis, left hand; M17.0 Bilateral primary osteoarthritis of knee; M16.0 Bilateral primary osteoarthritis of hip; G89.4 Chronic pain syndrome; I10 Essential (primary) hypertension; E11.9 Type 2 diabetes mellitus without complications; K85.90 Acute pancreatitis without necrosis or infection, unspecified; I82.401 Acute embolism and thrombosis of unspecified deep veins of right lower extremity; A41.9 Sepsis, unspecified organism; Z79.899 Other long term (current) drug therapy; Z95.828 Presence of other vascular implants and grafts

== ENCOUNTER → 2018-04-01 | Outpatient (CLI) | payer OTHER ==
[~2018-04-01] VITALS: Ht 175.3 cm; Wt 125.6 kg
[~2018-04-01] MED LIST changes: +LYRICA100 MG PO; +OXYCODONE HCL E10 MG PO; +OXYCONTIN10 M1 PO
--- NOTE | ~2018-04-01 | HPC ---
[facility] [address] [address] PAIN MANAGEMENT CONSULTATION Name: KENNEDY DIMAS Room #: REG CL MCash.#: [id number] Admission: 04/01/18 Attend Phys: Wandy Smiley Discharge: Date of : 48 Report #: [id number] THIS REPORT FOR: //name// CC: Wandy Yuan MD Physician staff DATE OF SERVICE: 04/01/2018 CHIEF COMPLAINT: Here for medication renewal for his low back pain, lumbar radiculopathy. HISTORY OF PRESENT ILLNESS: The patient presents today with his after a recent hospitalization at for his congestive heart failure and has diabetes. He was evidently in the hospital at 2 times, found to be slightly confused and having difficulty with his heart. He evidently had a blood sugar of around 39 one hospitalization and an excess of about 16 pounds of fluid. They removed that, sent him home, then he went back a couple of days later with some more fluid that had built up and they have decided to put in a CardioMEMS and is scheduled for 05/01/2018 to have that implanted. This should help measure his pressures of his heart and so, they can be on top of decreasing his fluid when it gets too high and hopefully decrease hospitalizations. The patient tells me at that time in the hospital, he also had his spinal cord stimulator reprogrammed because he had allowed the battery to and had not been using it, so they recharged it and he is using that. The patient tells me he does not get much relief from that. At this time, still having low back pain and leg pain down his right leg. States his pain is an 8/10 today, a burning and achy pain. He tells me that they also decreased his OxyContin from 20 mg to 10 mg twice a day. He is still on Percocet 5/325 four pills a day. He told me that the doctors want him off all of his opioids in the future due to his back, congestive heart failure and his diabetes. The patient is wondering if there were any alternatives that we can offer him. ALLERGIES: No known drug allergies. CURRENT LIST OF MEDICATIONS: OxyContin 10 mg twice a day, oxycodone 5 mg 4 times a day, Lyrica 100 mg at bedtime, potassium 20 mEq twice a day, amlodipine 10 mg daily, Cardura 4 mg daily, hydralazine 100 mg every 8 hours, Lasix 80 mg 3 times a day, Coumadin 7.5 mg daily, bupropion 150 mg twice a day, fish oil twice a day, Zocor 40 mg daily, Coreg 12.5 mg twice a day, Crestor 10 mg daily, insulin sliding scale and regular, Zoloft 50 mg 2 tablets daily. PQRS: Today, 1. History of osteoarthritis in his upper and lower extremities. [place] [address] PAIN MANAGEMENT CONSULTATION Name: DIMASKENNEDY ESQUIVEL Room #: REG CLTrixie Fan#: [id number] Admission: 04/01/18 Attend Phys: Wandy Smiley Discharge: Date of : 48 Report #: [id number] 2. Height 5 feet 9 inches, weight 276 pounds, BMI is 40.9. 3. Vital signs: Blood pressure 157/63, pulse is 70, respirations 18, oxygen sat is 94. 4. Pain intensity is 8/10. 5. Dizziness. He does have some slight dizziness and has fallen in the last 3 months. 6. He is on a blood thinner of Coumadin and has a history of hypertension. 7. Opioid therapy greater than 6 weeks is positive and he does have a signed opioid contract on the chart. 8. His risk assessment tool is low. His functional assessment is 40/70. 9. Recreational drug use, he denies, he is a former smoker and does not drink alcohol. We did check the [place] and [place] drug monitoring system and he is filling appropriate from his medications from Dr. Aidan Hobson. PHYSICAL EXAMINATION: GENERAL: The patient is a well-developed, well-nourished gentleman that appears his stated age. He is alert and orientated x 3, using a walker today. NECK: Without JVD. LUNGS: Diminished but no shortness of breath noted. EXTREMITIES: Upper motor strength to be judged 4/5 in major muscle groups, pain in the lower back and in the right hip, down his right leg to his knee. Spinal cord stimulator battery felt in the right buttock region. Lower extremity strength to be judged 4/5 in his lower extremities and all of his muscle groups, using a walker today. ASSESSMENT: 1. Symptomatic lumbar radiculopathy, history of status post lumbar decompression laminectomy. 2. Chronic pain syndrome requiring complex medical management. 3. Osteoarthritis affecting his hands, knees, hips. 4. Hypertension. 5. Type 2 diabetes. 6. Sepsis. 7. Degenerative joint disease, spinal stenosis. 8. Pancreatitis. 9. Deep vein thrombosis in his right leg. 10. Inferior vena cava filter. 11. Congestive heart failure. We reviewed the fact that opiate medications are being used to provide analgesia adequate to support activities of daily living, not attempting to achieve a specific pain score on the 0-10 Visual Analog Scale. The current opiate medications are providing sufficient analgesia to allow the patient to participate in activities of daily living. The patient is not exhibiting any aberrant behavior suggestive of drug diversion. The patient is not having any adverse reactions to medications. The patient is not suffering from daytime [facility] [address] [place] [address] PAIN MANAGEMENT CONSULTATION Name: KENNEDY DIMAS Room #: REG [facility].#: [id number] Admission: 04/01/18 Attend Phys: Wandy Smiley Discharge: Date of : 48 Report #: [id number] somnolence or mental acuity changes. The patient is managing opiate-induced constipation with appropriate gpkj-cud-xozyojm agents and dietary considerations. The patient was counseled on concern for caution with operating a motor vehicle while using opiate medications. A physical exam was performed and the patient's functional status was evaluated. All patients with back pain were advised against the bed rest greater than 4 days and were advised to return to normal activities. Pain score assessment was noted and the treatment plan was reviewed with the patient. All current medications, both prescribed and OTC were reviewed and reconciled on the electronic medical record. Tobacco screening was accomplished and smoking cessation was advised when indicated. BMI was noted and diet/exercise modification was recommended for all patients following outside normal parameters. I reviewed with the patient today their responsibilities to safeguard prescription medications, reviewed their responsibility to utilize medications only as prescribed by the physician. They are to seek and receive pain medications only from 1 physician group ( [facility]). They are to use 1 pharmacy and keep the clinic informed if they change pharmacies. Their responsibilities include making followup visits in a timely fashion and to avoid abrupt discontinuation of medication usage. Their responsibilities further include bringing their medications (bottles from the pharmacy with residual pills) to the visit for possible confirmation of pill counts and the patient understands it is their responsibility to submit to random drug screens to ensure both that the medications prescribed are present, and that no other controlled substances are present. All prescriptions provided today were generated electronically. PLAN: 1. The patient returns today after recent hospitalization at [facility] for his congestive heart failure and his diabetes while in the hospital, they had decreased his pain medicine from OxyContin 20 to 10 mg daily. The patient is here for a refill of his medications and wondering if there is anything else that can be definitive for helping his pain be better controlled. 2. Script for OxyContin 10 mg 1 p.o., quantity 60 with release for today and in 4-week was given. We will avoid the 20 mg OxyContin script at [facility] that is on hold there. 3. Percocet 5/325, #120, release in 4 weeks was also given. 4. Lyrica, the patient has been on 100 mg at bedtime. After much discussion, we decided to increase his Lyrica to 50 mg in the morning for 3-5 days. The patient is to be aware if any increase in fluid in his lower extremities and if so, he was to discontinue the 50 mg. Goal is to be at 100 mg twice a day of Lyrica to see if this is beneficial in helping some of his lumbar radicular pain. The patient has been stable on the 100 mg for quite a while at bedtime, so I think that he should be able to tolerate this without difficulty. [facility] [address] [place] [address] PAIN MANAGEMENT CONSULTATION Name: KENNEDY DIMAS Room #: REG Trixie Fan#: [id number] Admission: 04/01/18 Attend Phys: Wandy Smiley Discharge: Date of : 48 Report #: [id number] 5. Discussed his spinal cord stimulator, which is a [employer] device and see if they can adjust it again to see if that will help with some of his radicular pain. He tells me he does have an appointment with the pain physician that manages his spinal cord stimulator in a couple of weeks and he will have it adjusted again at that time. 6. Discussed options of other pain control measures. The patient tells me that he does not adjust very well with steroids. We did discuss the risk factors regarding his blood sugars and the steroids with his congestive heart failure. At this time, we will not pursue any further injections, but we will revisit this in the future if the Lyrica increase is not helpful. The patient is agreeable with that plan of care. About 25 minutes were spent with this patient today discussing all of these changes, which the patient is agreeable to try. He will come back to the clinic in 2 months if not sooner for a refill of his medications. At that time, we will possibly decrease his oxycodone to 10 mg, possibly once a day of his OxyContin or decrease his short-acting at that time to continue to wean down off his opioids per the [facility]'s wishes. The patient is agreeable with his plan of care, seen in collaboration with Dr. Aidan Hobson. <ELECTRONICALLY SIGNED> By: Wandy Smiley 04/02/18 0719 [id number] Wandy Smiley /nt
[2018-04-01 09:59] VITALS: BP 157/63
== END ==
LOC: PAIN 07:09
DX: M54.16 Radiculopathy, lumbar region (principal); G89.29 Other chronic pain; M17.0 Bilateral primary osteoarthritis of knee; M16.0 Bilateral primary osteoarthritis of hip; M19.042 Primary osteoarthritis, left hand; M19.041 Primary osteoarthritis, right hand; I50.9 Heart failure, unspecified; M19.90 Unspecified osteoarthritis, unspecified site; M48.061 Spinal stenosis, lumbar region without neurogenic claudication; E11.9 Type 2 diabetes mellitus without complications; Z79.899 Other long term (current) drug therapy

== ENCOUNTER → 2018-07-27 | Outpatient (CLI) | payer OTHER ==
[~2018-07-27] VITALS: Ht 175.3 cm; Wt 125.2 kg
[~2018-07-27] MED LIST changes: +BUMETANIDE2 M1 PO; +COZAAR 25 MG TA25 M1 PO; +LYRICA150 MG PO; +VICTOZA 3-0.6 MG/0.1 INJECTION
[2018-07-27 11:03] VITALS: BP 139/65
--- NOTE | 2018-07-27 11:12 | NUR ---
Pain Clinic Assessment: 1. History of Osteoarthritis: Left Lower Extremity Left Upper Extremity Right Lower Extremity Right Upper Extremity History of Rheumatoid Arthritis: Not Applicable 2. Height: 5 ft. 9 in. 175.3 cm. Weight: 276.0 lb. oz. 125.193 kg. Patient's BMI: 40.7 3. Vital Signs: BP: 139/65 Pulse: 102 Resp: 16 Temp: 02 Sat: 93 ECG Mon: 4. Pain Intensity: 8 5. Fall Risk: Dizziness: N Needs help standing or walking: N Fallen in the last 3 months: Y Fall risk comments: 6. Patient on Blood Thinner: WARFARIN 7. History of Hypertension: Y 8. Opioid Therapy greater than 6 weeks: Y Opiate Contract Signed: 12/02/15 9. Risk Assessment Tool Provided: LOW/3 10. Functional Assessment Tool: 40/ 11. Recreational Drug Use: Never Drug Type: Tobacco Use: Former Smoker Tobacco Type: Amount or Packs/day: How Many Years: Alcohol Use: Past use Frequency: Quant:
--- NOTE | 2018-07-28 09:01 | HPC ---
[facility] [address] [address] PAIN MANAGEMENT CONSULTATION Name: JUDIEKENNEDY ALEMAN Room #: REG [facility]an [facility] [id number] Admission: 07/27/18 ������������������ Attend Phys: Wandy Smiley Discharge: ������������������ Date of : 48 Report #: [id number] THIS REPORT FOR: //name// CC: Wandy Isaacsampson Winter DATE OF SERVICE: 07/27/2018 CHIEF COMPLAINT: 1. Low back pain. 2. Lumbar radiculopathy and peripheral neuropathy. HISTORY OF PRESENT ILLNESS: The patient returns to the Pain Clinic today for refill of his medications. He tells me that he was doing fairly well on his current medicines, then his primary doctor increased his Lyrica to 150 b.i.d. and then increased it again to 300 b.i.d. The patient fell and had some mental acuity issues. He was in the hospital for a few days and then went to a rehab center for about a week. He has since decreased his Lyrica back to 150 twice a day. Continues to complain of peripheral neuropathy pain in his lower extremities and feet. He does complain of low back pain and bilateral hip pain. He tells me his pain is an 8/10 today and would like a refill of his pain medicines but wondering what we can do since they have decreased his Lyrica for his neuropathy pain. ALLERGIES: No known drug allergies. CURRENT LIST OF MEDICATIONS: Lyrica 150 b.i.d., bumetanide 2 mg twice a day, Victoza daily, Cozaar 12.5 mg daily, oxycodone 5/325 q.i.d., OxyContin 10 mg b.i.d., potassium 20 mEq b.i.d., amlodipine 5 mg b.i.d., Cardura 4 mg daily, hydralazine 100 mg every 8 hours, Coumadin 7.5 mg daily, simvastatin 40 mg at bedtime, bupropion 150 mg b.i.d., carvedilol 12.5 mg b.i.d., Crestor 10 mg daily, insulin NovoLog 30 units before meals, insulin NPH 50 mg b.i.d. and sertraline 100 mg daily. PQRS: 1. He does have a history of osteoarthritis in his upper and lower extremities. Denies rheumatoid arthritis. 2. Height is 5 feet 9 inches, weight is 276 and BMI is 40.7. 3. VITAL SIGNS: Blood pressure 139/65, pulse is 102, respirations 16 and oxygen sat 93. 4. Pain score is 8/10. 5. Fall risk. Denies dizziness. Does not eat, walking or standing. Has fallen in the last 3 months, requiring hospitalization. 6. The patient is on blood thinner, warfarin. 7. History of hypertension, [place] [address] PAIN MANAGEMENT CONSULTATION Name: DIMASKENNEDY Room #: REG CLTrixie Fan#: [id number] Admission: 07/27/18 ������������������ Attend Phys: Wandy Smiley Discharge: ������������������ Date of : 48 Report #: [id number] 8. Opioid therapy is greater than 6 weeks; therefore, an opiate signed contract is on the chart. 9. His risk assessment tool is low. His functional assessment 40/70. 10. Recreational drug use. He denies he is a former smoker and does not drink alcohol. We did check the prescription monitoring system. The patient is filling appropriately for his medications, slightly longer than we would have been expected due to hospitalization and rehabilitation. We will check a drug screen on the next visit since he has been out of his medications for a week. PHYSICAL EXAMINATION GENERAL: This patient is a well-developed, well-nourished gentleman who appears stated age. He is alert and orientated x 3. He is using a walker. LUNGS: Sounds diminished but no shortness of breath. EXTREMITIES: Upper extremity strength noted to be 4/5 in all major muscle groups. Lower extremity strength judged to be 4/5 in lower extremity groups, does use a walker at all times. The patient does have 2+ lower extremity edema, which is decreased since his last visit. Does complain of low back pain and right hip pain. ASSESSMENT: 1. Symptomatic lumbar radiculopathy, history of status post lumbar decompression laminectomy. 2. Chronic pain syndrome requiring complex medical management. 3. Osteoarthritis involving his hands, knees and hips. 4. Hypertension. 5. Type 2 diabetic. 6. Sepsis. 7. Degenerative joint disease, spinal stenosis. 8. Pancreatitis. 9. Deep vein thrombosis in his right leg. 10. Inferior vena cava filter. 11. Congestive heart failure. 12. Depression. We reviewed the fact that opiate medications are being used to provide analgesia adequate to support activities of daily living, not attempting to achieve a specific pain score on the 0-10 Visual Analog Scale. The current opiate medications are providing sufficient analgesia to allow the patient to participate in activities of daily living. The patient is not exhibiting any aberrant behavior suggestive of drug diversion. The patient is not having any adverse reactions to medications. The patient is not suffering from daytime somnolence or mental acuity changes. The patient is managing opiate-induced constipation with appropriate pwnp-xaz-eqkskzh agents and dietary considerations. The patient was counseled on concern for caution with operating [address] [place] [address] PAIN MANAGEMENT CONSULTATION Name: KENNEDY DIMAS Room #: REG [facility]..#: [id number] Admission: 07/27/18 ������������������ Attend Phys: Wandy LIANET Smiley Discharge: ������������������ Date of : 49 Report #: [id number] a motor vehicle while using opiate medications. A physical exam was performed and the patient's functional status was evaluated. All patients with back pain were advised against the bed rest greater than 4 days and were advised to return to normal activities. Pain score assessment was noted and the treatment plan was reviewed with the patient. All current medications, both prescribed and OTC were reviewed and reconciled on the electronic medical record. Tobacco screening was accomplished and smoking cessation was advised when indicated. BMI was noted and diet/exercise modification was recommended for all patients following outside normal parameters. I reviewed with the patient today their responsibilities to safeguard prescription medications, reviewed their responsibility to utilize medications only as prescribed by the physician. They are to seek and receive pain medications only from 1 physician group ( [facility]). They are to use 1 pharmacy and keep the clinic informed if they change pharmacies. Their responsibilities include making followup visits in a timely fashion and to avoid abrupt discontinuation of medication usage. Their responsibilities further include bringing their medications (bottles from the pharmacy with residual pills) to the visit for possible confirmation of pill counts and the patient understands it is their responsibility to submit to random drug screens to ensure both that the medications prescribed are present, and that no other controlled substances are present. All prescriptions provided today were generated electronically. PLAN: 1. We discussed treatment options with the patient today. The patient tells me he has increasing diabetic neuropathy in his bilateral feet since decreasing his Lyrica but unable to take higher doses of Lyrica due to mental acuity issues and recent hospitalization for a fall. I discussed with Dr. Lynne who saw the patient today, we decided to do a trial of Cymbalta starting at 30 mg once a day. This medicine will help treat depression as well as peripheral neuropathy. The patient is to continue his Lyrica at his current dose. The patient is on Zoloft and bupropion currently for depression. We will have him stop the bupropion for now while we do a trial of his Cymbalta to see if it is helpful for neuropathic pain issues. 2. Script given for OxyContin 10 mg #60 for release today and again in 4-week. We will continue at this level and not increasing due to his respiratory and cardiac status. 3. Percocet 5/325, #120 to be released today and 4-week. 4. No script for Lyrica given today. His primary care doctor had provided him with Lyrica 150 mg and we will continue at that dose currently. 5. The patient is agreeable with this plan of care. He will call or have his called us if he finds that the Cymbalta is not relieving some of his peripheral neuropathy, we may increase that medicine to 60 mg based on [address] [address] PAIN MANAGEMENT CONSULTATION Name: KENNEDY DIMAS Room #: REG APOORVA Fan#: [id number] Admission: 07/27/18 ������������������ Attend Phys: Wandy Smiley Discharge: ������������������ Date of : 48 Report #: [id number] information that he provides us in a phone call.We will decrease Zoloft to 50mg if we need to increase Cymbalta to 60mg. 6. The patient is seen with and in collaboration with Dr. Yahir Lynne today. ��������������������������������������������� <ELECTRONICALLY SIGNED> ���������������������������������������� By: Wandy Smiley ��������������������������������������������� 07/28/18 0901 [id number] Wandy Smiley /sujatha
== END ==
LOC: PAIN 07-15 07:39
DX: M54.16 Radiculopathy, lumbar region (principal); M19.042 Primary osteoarthritis, left hand; M19.041 Primary osteoarthritis, right hand; M16.0 Bilateral primary osteoarthritis of hip; M17.0 Bilateral primary osteoarthritis of knee; M96.1 Postlaminectomy syndrome, not elsewhere classified; M48.061 Spinal stenosis, lumbar region without neurogenic claudication; E11.9 Type 2 diabetes mellitus without complications; I11.0 Hypertensive heart disease with heart failure; I50.9 Heart failure, unspecified; K85.90 Acute pancreatitis without necrosis or infection, unspecified; I82.491 Acute embolism and thrombosis of other specified deep vein of right lower extremity; F32.9 Major depressive disorder, single episode, unspecified; A41.9 Sepsis, unspecified organism; Z79.899 Other long term (current) drug therapy

== ENCOUNTER → 2018-09-30 | Outpatient (CLI) | payer OTHER ==
[~2018-09-30] VITALS: Ht 175.3 cm; Wt 124.3 kg
[2018-09-30 09:51] VITALS: BP 176/74
--- NOTE | 2018-09-30 09:58 | NUR ---
Pain Clinic Assessment: 1. History of Osteoarthritis: Left Lower Extremity Left Upper Extremity Right Lower Extremity Right Upper Extremity History of Rheumatoid Arthritis: Not Applicable 2. Height: 5 ft. 9 in. 175.3 cm. Weight: 274.0 lb. oz. 124.286 kg. Patient's BMI: 40.4 3. Vital Signs: BP: 176/74 Pulse: 83 Resp: 18 Temp: 02 Sat: 92 ECG Mon: 4. Pain Intensity: 7 5. Fall Risk: Dizziness: N Needs help standing or walking: Y Fallen in the last 3 months: N Fall risk comments: 6. Patient on Blood Thinner: WARFARIN 7. History of Hypertension: Y 8. Opioid Therapy greater than 6 weeks: Y Opiate Contract Signed: 12/02/15 9. Risk Assessment Tool Provided: LOW/3 10. Functional Assessment Tool: 40 11. Recreational Drug Use: Never Drug Type: Tobacco Use: Former Smoker Tobacco Type: Amount or Packs/day: How Many Years: Alcohol Use: Past use Frequency: Quant:
--- NOTE | 2018-10-01 07:43 | HPC ---
[facility] [address] [address] PAIN MANAGEMENT CONSULTATION Name: JUDIEKENNEDY ALEMAN Room #: REG [facility]An[facility] HospitalCash.#: [id number] Admission: 09/30/18 ������������������ Attend Phys: Wandy Smiley Discharge: ������������������ Date of : 49 Report #: [id number] THIS REPORT FOR: //name// CC: Wandy Smiley James Hanover DATE OF SERVICE: 09/30/2018 CHIEF COMPLAINT: Low back pain and lumbar radiculopathy. HISTORY OF PRESENT ILLNESS: This is a very pleasant 67-year-old gentleman who returns to the pain clinic today with his to discuss his medications and treatment options along with a medication refill. The patient tells me that he feels like his pain has increased quite a bit since we have seen him last, especially his neuropathy. He does suffer from peripheral neuropathy related to his diabetes. His tells me that his primary doctor had stopped his Lyrica telling me that it was increasing his confusion and so that may also play a part of why his pain is higher. He tells me that his OxyContin and oxycodone are not as effective as they used to be. We had the patient start Cymbalta at his last visit. He finds that that may be beneficial, but though at times, he tells me that he feels like life is not worth living. It is hard to get through each day. He continues to be on Cymbalta 30 mg as well as bupropion 150. We had stopped his Zoloft when we started the Cymbalta. He feels that maybe he is not on a high enough medication. The patient tells me his pain is mostly in his lower back and his hips. He does have pain score of 7/10, which is an achy, burning pain. It is worse when he is walking and standing and with cooler weather. Medications, sitting down and his spinal cord stimulator are helpful. He wonders if he should go back to see his neurosurgeon as well. ALLERGIES: No known drug allergies. CURRENT MEDICATIONS: Oxycodone 5/325 q.i.d. p.r.n., OxyContin 10 mg b.i.d., Cymbalta 30 mg daily, bumetanide 2 mg b.i.d., Victoza injection daily, Cozaar 25 mg daily, potassium 20 mEq b.i.d., amlodipine 5 mg b.i.d., Cardura 4 mg daily, hydralazine 100 mg every eight hours, Coumadin 7.5 mg daily, bupropion 150 mg daily, simvastatin 40 mg daily, Coreg 12.5 mg b.i.d., Crestor 10 mg daily, NovoLog R before meals and NovoLog N before meals twice daily. PQRS: 1. History of osteoarthritis in his upper and lower extremities. Denies any rheumatoid arthritis. 2. Height is 5 feet 9 inches, weight is 274 pounds. [place] [address] PAIN MANAGEMENT CONSULTATION Name: KENNEDY DIMAS Room #: EVELYN Fan#: [id number] Admission: 09/30/18 ������������������ Attend Phys: Wandy Smiley Discharge: ������������������ Date of : 48 Report #: [id number] 3. Vital signs: Blood pressure 176/74, pulse is 83, respirations 18, oxygen sat is 92. 4. Pain score 7/10. 5. Fall risk: Denies dizziness. Does need help walking, uses a walker. He has not fallen in the last three months. 6. The patient is on Coumadin and he does take medicine for hypertension. 7. Opioid therapy is greater than six weeks; therefore, an opioid signed contract is on the chart. 8. Risk assessment tool is low. Functional assessment is 40/70. 9. Recreational drug use: She denies. He is a former smoker and does not drink alcohol. We did check the prescription monitoring system. The patient is filling appropriately for his medications and is due for his medications today. We will check a urine drug screen on the patient at the next visit. He tells me he safeguards his medicines with no aberrant behaviors noted. PHYSICAL EXAMINATION: GENERAL: This is a well-developed, well-nourished gentleman that appears his stated age, slightly depressed today. He is alert and oriented, using a walker. NECK: Without JVD or adenopathy. LUNGS: Diminished, but no shortness of breath noted. EXTREMITIES: Upper extremity strength judged to be 4/5 in all major muscle groups. He does complain of pain in his lower back that radiates into his right hip and radiates down the posterior leg to his knee. He has a spinal cord stimulator battery in place in his right buttock. His lower extremity strength judged to be 4/5 in all major muscle groups. ASSESSMENT: 1. Symptomatic lumbar radiculopathy, history of status post lumbar decompression laminectomy. 2. Chronic pain syndrome requiring complex medical management. 3. Osteoarthritis affecting his knees, hips and hands. 4. Depression. 5. Degenerative joint disease and spinal stenosis. 6. Deep vein thrombosis in his right leg. 7. Inferior vena cava filter. 8. Congestive heart failure. We reviewed the fact that opiate medications are being used to provide analgesia adequate to support activities of daily living, not attempting to achieve a specific pain score on the 0-10 Visual Analog Scale. The current opiate medications are providing sufficient analgesia to allow the patient to participate in activities of daily living. The patient is not exhibiting any aberrant behavior suggestive of drug diversion. The patient is not having any adverse reactions to medications. The patient is not suffering from daytime [facility] [address] [place] [address] PAIN MANAGEMENT CONSULTATION Name: KENNEDY DIMAS Room #: REG [facility]Holy [facility] [id number] Admission: 09/30/18 ������������������ Attend Phys: Wandy Smiley Discharge: ������������������ Date of : 49 Report #: [id number] somnolence or mental acuity changes. The patient is managing opiate-induced constipation with appropriate yndf-duo-bndmnbb agents and dietary considerations. The patient was counseled on concern for caution with operating a motor vehicle while using opiate medications. A physical exam was performed and the patient's functional status was evaluated. All patients with back pain were advised against the bed rest greater than 4 days and were advised to return to normal activities. Pain score assessment was noted and the treatment plan was reviewed with the patient. All current medications, both prescribed and OTC were reviewed and reconciled on the electronic medical record. Tobacco screening was accomplished and smoking cessation was advised when indicated. BMI was noted and diet/exercise modification was recommended for all patients following outside normal parameters. I reviewed with the patient today their responsibilities to safeguard prescription medications, reviewed their responsibility to utilize medications only as prescribed by the physician. They are to seek and receive pain medications only from 1 physician group ( [facility]). They are to use 1 pharmacy and keep the clinic informed if they change pharmacies. Their responsibilities include making followup visits in a timely fashion and to avoid abrupt discontinuation of medication usage. Their responsibilities further include bringing their medications (bottles from the pharmacy with residual pills) to the visit for possible confirmation of pill counts and the patient understands it is their responsibility to submit to random drug screens to ensure both that the medications prescribed are present, and that no other controlled substances are present. All prescriptions provided today were generated electronically. PLAN: 1. We discussed treatment options with the patient today. He tells me that he feels that the Cymbalta may not be enough. He is feeling quite depressed, feels like life is not worth living at times. I did suggest that we could increase his Cymbalta, which will help with his neuropathic pain that he would need to ask his primary care doctor, Dr. Yuan to see if he is able to stop his bupropion and then, we would increase the Cymbalta first to 60 and then to 90 mg tablets. The who is present today, so that she will call the primary and let us know. We will call in that medication if they are agreeable to this. I believe that the patient's neuropathic pain has increased significantly due to the fact that he has stopped his Lyrica, which was causing him confusion. We do need to watch medications that affect seratonin and that is why he needs to ask his PCP before we do any changes. 2. The patient requested increase in his pain pills. I explained to him that the doctors are trying to encourage the lowest most effective dose as well as our doctors related to his cardiac and respiratory status, the patient has not had any hospitalizations since his last visit and I believe that keeping his [facility] [address] [place] [address] PAIN MANAGEMENT CONSULTATION Name: KENNEDY DIMAS Room #: REG APOORVA Fan#: [id number] Admission: 09/30/18 ������������������ Attend Phys: Wandy Smiley Discharge: ������������������ Date of : 49 Report #: [id number] pain medication has been helpful in preventing hospitalizations. The patient is agreeable with this. Scripts given today for his OxyContin 10 mg b.i.d., #60 for release today and 4-week as well as Percocet 5/325, #120 for release today and 4-week. 3. The patient wondered if he should see a neurosurgeon. I explained to him I do not know that he would be a surgical candidate based on his cardiac and respiratory findings, but I would encourage him to go back to his neurosurgeon. They have all of his records available to them to make a good decision. He has had his recent MRIs and back x-rays there and his previous back surgery was done through the system. Dr. Hobson did come in and discuss this as well with the patient. 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 4. The patient was discharged home. Will make an appointment in two months' time period and call us regarding the Cymbalta script if one is needed at the higher dose or one needed at the 30 mg level. The patient is seen with Dr. Hobson who also collaborated care today as stated above. ��������������������������������������������� <ELECTRONICALLY SIGNED> ���������������������������������������� By: Wandy Smiley ��������������������������������������������� 10/01/18 0743 1432 52 Wandy Smiley /nt
== END ==
LOC: PAIN 06:51
DX: M48.061 Spinal stenosis, lumbar region without neurogenic claudication (principal); M54.16 Radiculopathy, lumbar region; G89.4 Chronic pain syndrome; M17.0 Bilateral primary osteoarthritis of knee; M16.0 Bilateral primary osteoarthritis of hip; M19.042 Primary osteoarthritis, left hand; M19.041 Primary osteoarthritis, right hand; M19.90 Unspecified osteoarthritis, unspecified site; I50.9 Heart failure, unspecified; I82.4Z1 Acute embolism and thrombosis of unspecified deep veins of right distal lower extremity; M96.1 Postlaminectomy syndrome, not elsewhere classified; Z79.899 Other long term (current) drug therapy; Z95.828 Presence of other vascular implants and grafts

== ENCOUNTER → 2018-12-11 | Outpatient (CLI) | payer OTHER ==
[~2018-12-11] VITALS: Ht 175.3 cm; Wt 127.4 kg
--- NOTE | ~2018-12-11 | HPC ---
[facility] [place] [address] PAIN MANAGEMENT CONSULTATION Name: JUDIEKENNEDY ALEMAN Room #: REG [facility] Melissa.#: [id number] Admission: 12/11/18 ������������������ Attend Phys: Antonio Hobson MD Discharge: ������������������ Date of : 48 Report #: [id number] THIS REPORT FOR: //name// CC: James Hobson DATE OF SERVICE: 12/11/2018 CHIEF COMPLAINT: Here for medication renewal and I have had some teeth removed and going to have an implant placed. HISTORY OF PRESENT ILLNESS: The patient is a 67-year-old gentleman who has been followed in the Pain Clinic. He has a history of symptomatic lumbar radiculopathy. He is status post decompression laminectomy. Has a history of chronic pain syndrome, which has required chronic complex medical management with opioids. He also has osteoarthritis affecting his hands. He has a spinal cord stimulator in place. He has been implanted since 2009. He has recurrent implanted stimulator which was performed at . Feels that it does provide relief and benefits. He has a history of congestive heart failure. He has had problems with blood clots in the past. He is on a blood thinner. He recently stopped taking the blood thinning medication to undergo his oral surgery. Has a history of diabetes. States that his A1c last time he recalled was 7.9. He has been taking some Extra insulin. ALLERGIES: No known drug allergies. CURRENT MEDICATIONS: Percocet 5/325, oxycodone 20 mg b.i.d., Lyrica 100 mg at bedtime, potassium 20 mEq b.i.d., amlodipine 10 mg, Cardura 4 mg, hydralazine 100 mg q. 8 hours, Lasix 40 mg 2 tablets t.i.d., Coumadin 7.5 mg daily, bupropion SR 150 mg b.i.d., fish oil 1000 mg, Zocor 40 mg, Coreg 12.5 mg b.i.d., Crestor 10 mg, insulin subcutaneous 30 units, 30 minutes before meals, and Zoloft 50 mg 2 tablets. PAIN CLINIC ASSESSMENT AND PQRS: 1. The patient has history of osteoarthritis. The patient has left lower extremity, left upper extremity, right lower extremity, and right upper extremity arthritic problems. He is not being treated for rheumatoid arthritis. 2. Height 5 feet 9 inches, weight 280 pounds, BMI is 41.4. 3. Vital signs: Blood pressure 146/60, pulse 70, respiratory rate 20, room air saturation 98%. 4. Pain intensity 8/10. 5. Fall history: The patient has not fallen in the last 3 months. He does walk with a cane today. He does use a walker when he has more space. 6. Blood thinner. The patient is on Coumadin. 7. History of hypertension. The patient is [place] [address] PAIN MANAGEMENT CONSULTATION Name: JUDIEKENNEDY ALEMAN Room #: REG CL Mita#: [id number] Admission: 12/11/18 ������������������ Attend Phys: Antonio Hobson MD Discharge: ������������������ Date of : 48 Report #: [id number] 8. Opioids greater than 6 weeks. The patient has received medication from one source, the pain clinic. 9. Risk assessment tool, low for opioid use. 10. Functional assessment tool 40/70. 11. Recreational drug use. The patient denies. 12. Tobacco: The patient denies. PHYSICAL EXAMINATION: GENERAL: The patient is a well-developed, well-nourished white male. Appears his stated age. He is alert and oriented x 3. His affect is appropriate. Speech is fluent. HEENT: The patient does have some bruising on the right cheek. States that he has had a number of teeth removed on that side. NECK: Without adenopathy or JVD. The patient states that there was some swelling associated with the tooth removal. LUNGS: Clear to auscultation. Distant tone. HEART: Regular rate. EXTREMITIES: Upper extremity muscle strength judged to be 4+/5 for the major muscle groups in the upper extremity. The patient has pain and discomfort in his right hip. Well-healed scars in the lower portion of his back. NEUROLOGICAL: The patient ambulates with a walker and with a cane. IMPRESSION: 1. Symptomatic lumbar radiculopathy history, status post lumbar decompressive laminectomy. 2. Chronic pain syndrome requiring complex medication management with opioid medications. 3. Osteoarthritis affecting his hands. 4. Hypertension. 5. Type 2 diabetes. 6. Sepsis. 7. Alcoholism. 8. Back surgery. 9. Degenerative joint disease. 10. Spinal stenosis. 11. Pancreatitis. 12. Deep venous thrombosis of right leg. 13. Inferior vena cava filter in and out. RECOMMENDATIONS: We discussed treatment options with the patient. At this juncture, we would provide the patient with his renewal of his medication. We have discussed the risks and benefits of opioid medications. They can be problematic in some patients. The patient feels overall at this point, his medications are working reasonably well and he is taking them as prescribed. He is aware that opioid medications can become less effective over time secondary to development of tolerance. We have discussed the problems with opioids and [facility] [address] [place] [address] PAIN MANAGEMENT CONSULTATION Name: KENNEDY DIMAS Room #: REG CLI [facility]#: [id number] Admission: 12/11/18 ������������������ Attend Phys: Antonio Hobson MD Discharge: ������������������ Date of : 48 Report #: [id number] that 72,000 people last year as a result of overdose of medication. The patient will continue with his current medication regimen of OxyContin 10 mg 1 p.o. b.i.d. and Percocet 5/325 one p.o. q.i.d. He has been given a script for these medications. He has been encouraged to take the medications as prescribed. He will follow up in the future as needed. Should he have any problems with increased pain secondary to the dental problems, the patient will call us if he gets any opioid medications from any source, other sources. We would like to thank you for letting us participate in his care. We would like to continue to follow the patient in regards to his complex medical management using opioids. ��������������������������������������������� ���������������������������������������� By: ��������������������������������������������� [id number] Antonio Hobson MD /nt
[2018-12-11 08:28] VITALS: BP 146/60
--- NOTE | 2018-12-11 08:39 | NUR ---
Pain Clinic Assessment: 1. History of Osteoarthritis: Left Lower Extremity Left Upper Extremity Right Lower Extremity Right Upper Extremity History of Rheumatoid Arthritis: Not Applicable 2. Height: 5 ft. 9 in. 175.3 cm. Weight: 280.8 lb. oz. 127.370 kg. Patient's BMI: 41.4 3. Vital Signs: BP: 146/60 Pulse: 70 Resp: 20 Temp: 02 Sat: 97 ECG Mon: 4. Pain Intensity: 8 5. Fall Risk: Dizziness: N Needs help standing or walking: Y Fallen in the last 3 months: N Fall risk comments: 6. Patient on Blood Thinner: WARFARIN 7. History of Hypertension: Y 8. Opioid Therapy greater than 6 weeks: Y Opiate Contract Signed: 12/02/15 9. Risk Assessment Tool Provided: LOW/3 10. Functional Assessment Tool: 11. Recreational Drug Use: Never Drug Type: Tobacco Use: Former Smoker Tobacco Type: Amount or Packs/day: How Many Years: Alcohol Use: Past use Frequency: Quant:
== END ==
LOC: PAIN 12-09 11:45
DX: Z76.0 Encounter for issue of repeat prescription (principal); M96.1 Postlaminectomy syndrome, not elsewhere classified; G89.4 Chronic pain syndrome; M19.042 Primary osteoarthritis, left hand; M19.041 Primary osteoarthritis, right hand; I10 Essential (primary) hypertension; E11.9 Type 2 diabetes mellitus without complications; Z86.718 Personal history of other venous thrombosis and embolism

== ENCOUNTER → 2019-02-17 | Outpatient (CLI) | payer OTHER ==
[~2019-02-17] VITALS: Ht 175.3 cm; Wt 123.3 kg
[2019-02-17 09:21] VITALS: BP 157/71
--- NOTE | 2019-02-17 09:28 | NUR ---
Pain Clinic Assessment: 1. History of Osteoarthritis: Left Lower Extremity Left Upper Extremity Right Lower Extremity Right Upper Extremity History of Rheumatoid Arthritis: Not Applicable 2. Height: 5 ft. 9 in. 175.3 cm. Weight: 271.8 lb. oz. 123.288 kg. Patient's BMI: 40.1 3. Vital Signs: BP: 157/71 Pulse: 77 Resp: 18 Temp: 02 Sat: 92 ECG Mon: 4. Pain Intensity: 8 5. Fall Risk: Dizziness: N Needs help standing or walking: N Fallen in the last 3 months: N Fall risk comments: 6. Patient on Blood Thinner: WARFARIN 7. History of Hypertension: Y 8. Opioid Therapy greater than 6 weeks: Y Opiate Contract Signed: 12/02/15 9. Risk Assessment Tool Provided: LOW/3 10. Functional Assessment Tool: 40 11. Recreational Drug Use: Never Drug Type: Tobacco Use: Former Smoker Tobacco Type: Amount or Packs/day: How Many Years: Alcohol Use: Past use Frequency: Quant:
--- NOTE | 2019-02-26 08:26 | HPC ---
[facility] [place] [address] PAIN MANAGEMENT CONSULTATION Name: JUDIEKENNEDY ALEMAN Room #: REG AOPORVA Fan#: [id number] Admission: 02/17/19 Attend Phys: Antonio Hobson MD Discharge: Date of : 48 Report #: [id number] THIS REPORT FOR: //name// CC: James Hobson DATE OF SERVICE: 02/17/2019 CHIEF COMPLAINT: Here for medication renewal. HISTORY: The patient is a 68-year-old gentleman who has been followed in the pain clinic because of chronic pain. As you may recall, he has a symptomatic lumbar radiculopathy. He is status post lumbar decompression laminectomy. Has a history of chronic pain. He has been using medications to help quell his pain. He was using Lyrica and this medication has been discontinued. He is using Cymbalta and has noted some improvement in his pain. Continues to have osteoarthritis, which affects his hands. She has a spinal cord stimulator in place. At this juncture, he is still having significant problems with his heart. He is suffering from congestive heart failure. has had blood clots in the past. He is on a blood thinning agent. He has a history of diabetes. He has returned today for renewal of his medications. He is feeling quite depressed. ALLERGIES: No known drug allergies. CURRENT MEDICATIONS: Percocet 5/325, oxycodone 20 mg b.i.d., Lyrica has been discontinued, Cymbalta 60 mg daily, potassium 20 mEq b.i.d., amlodipine 10 mg, Cardura 4 mg, hydralazine 100 mg, Lasix 40 mg 2 tablets t.i.d., Coumadin 7.5 mg daily, fish oil 1000 mg, Zocor 40 mg, Coreg 12.5 mg b.i.d., Crestor 10 mg, insulin subcutaneous sliding scale, Zoloft has been discontinued as well. PAIN CLINIC ASSESSMENT AND PQRS: 1. The patient has a history of osteoarthritis. He has had left lower extremity osteoarthritic problems. Has left upper extremity osteoarthritic problems, has right lower extremity osteoarthritic changes. The patient is not being treated for rheumatoid arthritis. 2. Height 5 feet 9 inches, weight 271 pounds, BMI is 40. 3. Vital signs: Blood pressure is 157/71, pulse 77, respiratory rate 18, room air saturation 92%. 4. Pain intensity 8/10. 5. Fall history: The patient has not fallen in the last 3 months. 6. Blood thinner. The patient is on warfarin. 7. Hypertension. The patient is being treated for hypertension. 8. Opioids greater than 6 weeks. 9. Risk assessment tool, [place] [address] PAIN MANAGEMENT CONSULTATION Name: KENNEDY DIMAS Room #: REG CLI Mita#: [id number] Admission: 02/17/19 Attend Phys: Antonio Hobson MD Discharge: Date of : 48 Report #: [id number] 10. Functional assessment tool 40/70. 11. Recreational drugs: The patient denies. 12. Tobacco: The patient is a former smoker. 13. Alcohol. The patient denies use of alcoholic beverages at this juncture. PHYSICAL EXAMINATION: GENERAL: The patient is a well-developed, somewhat obese white male, appears his stated age. He is alert and oriented. He is accompanied by his . The nurse states that the patient seemed somewhat depressed. He did cry during her interview. HEENT: Normocephalic, atraumatic. Extraocular eye muscles intact. NECK: Without adenopathy. LUNGS: Generally clear to auscultation. HEART: Regular rate. EXTREMITIES: Upper extremity muscle strength 4+/5 for the major muscle groups in the upper extremity. Has pain and discomfort down into his right hip. Well-healed scars in the lower portion of his back. The patient ambulates with use of a walker and a cane. IMPRESSION: 1. Symptomatic lumbar radiculopathy history, status post lumbar decompressive laminectomy. 1. Chronic pain syndrome requiring complex medical management with opioids. 2. Osteoarthritis affecting his hands. 3. Hypertension. 4. Type 2 diabetes. 5. Sepsis. 6. History of alcoholism in the past. 7. Back surgery. 8. Degenerative joint disease. 9. Spinal stenosis. 10. History of pancreatitis. 11. Deep venous thrombosis of his right leg. 12. Inferior vena cava filter had it placed and has been removed. RECOMMENDATIONS: We discussed treatment options with the patient. At this juncture, we will continue with his opioid medications. We will have the patient try Cymbalta 30 mg a.m. and 60 mg p.m. Hopefully, this will be helpful with his pain. He noticed some improvement in his pain and hopefully this will help with his depression. The patient and his are receptive to the change in his medications. We explained that oftentimes it might be a month or so before the medications starts to make a significant improvement. A script for his medications of Cymbalta, 30 mg 90 tablets 1 p.o. in the morning, 2 at bedtime and OxyContin 10 mg q. 12 hours 30 tablets as well as Percocet 5 mg 1 p.o. q. 4 hours total of 120 tablets have been provided. [facility] [address] [place] [address] PAIN MANAGEMENT CONSULTATION Name: KENNEDY DIMAS Room #: REG [facility]VA Fan#: [id number] Admission: 02/17/19 Attend Phys: Antonio Hobson MD Discharge: Date of : 48 Report #: [id number] We would like to thank you for letting us participate in his care. We hope he continues to improve. <ELECTRONICALLY SIGNED> By: Antonio Hobson MD 02/26/19 0826 [id number] Antonio Hobson MD /PMT
== END ==
LOC: PAIN 06:57
DX: M54.16 Radiculopathy, lumbar region (principal); G89.4 Chronic pain syndrome; M19.042 Primary osteoarthritis, left hand; M19.041 Primary osteoarthritis, right hand; I10 Essential (primary) hypertension; E11.9 Type 2 diabetes mellitus without complications; F10.20 Alcohol dependence, uncomplicated; M19.90 Unspecified osteoarthritis, unspecified site; M48.00 Spinal stenosis, site unspecified; I82.401 Acute embolism and thrombosis of unspecified deep veins of right lower extremity

== ENCOUNTER → 2019-04-28 | Outpatient (CLI) | payer OTHER ==
[~2019-04-28] VITALS: Ht 175.3 cm; Wt 118.3 kg
[~2019-04-28] MED LIST changes: +NOVOLOG FL100 UNIT/M SUBQ; +OMEPRAZOLE40 MG PO; +SPIRONOLACTONE25 M1 PO; +TRESIBA FL200 UNIT/1 SUBQ; +VOLTAREN100 GM TOP
[2019-04-28 08:47] VITALS: BP 148/69
--- NOTE | 2019-04-28 09:11 | NUR ---
Pain Clinic Assessment: 1. History of Osteoarthritis: B/L HANDS NECK B/L SHOULDERS B/L KNEES BACK History of Rheumatoid Arthritis: Not Applicable 2. Height: 5 ft. 9 in. 175.3 cm. Weight: 260.8 lb. oz. 118.298 kg. Patient's BMI: 38.5 3. Vital Signs: BP: 148/69 Pulse: 75 Resp: 20 Temp: 02 Sat: 97 ECG Mon: 4. Pain Intensity: 7-TODAY 5. Fall Risk: Dizziness: N Needs help standing or walking: Y Fallen in the last 3 months: N Fall risk comments: 6. Patient on Blood Thinner: WARFARIN 7. History of Hypertension: Y 8. Opioid Therapy greater than 6 weeks: Y Opiate Contract Signed: 12/02/15 9. Risk Assessment Tool Provided: MOD-7 10. Functional Assessment Tool: 11. Recreational Drug Use: Never Drug Type: Tobacco Use: Former Smoker Tobacco Type: Amount or Packs/day: How Many Years: Alcohol Use: Past use Frequency: Quant:
--- NOTE | 2019-04-29 08:42 | HPC ---
[facility] [address] [place] [address] PAIN MANAGEMENT CONSULTATION Name: DIMASKENNEDY Herr [id number] Admission: 04/28/19 Attend Phys: Wandy Smiley Discharge: Date of : 48 Report #: [id number] THIS REPORT FOR: //name// CC: Wandy Hobson MD DATE OF SERVICE: 04/28/2019 CHIEF COMPLAINT: Symptomatic lumbar radiculopathy, status post decompression surgery. HISTORY OF PRESENT ILLNESS: This is a very pleasant 68-year-old gentleman who returns to the pain clinic today for his chronic pain. He suffers low back pain and bilateral leg pain as a result of his status post lumbar decompression laminectomy. He also has diabetic peripheral neuropathy that causes pain in his lower extremities. The patient feels that his medications are beneficial in controlling his pain. Pain score today is 7/10, twisting, constant, numbness, burning pain that is worse with walking and lying flat. He feels that sitting and reclining as well as his medications are beneficial. The patient does report that he has been taking Cymbalta 60 mg twice a day. Per our records, he was instructed to take 30 mg in the morning and 60 at night, a total of 90 mg a day. We are unsure where this confusion came from. He does have a paper from with 120 mg dose listed, though they report they did not change his dosage. The patient again is feeling less depressed and pain is well controlled with his current regimen. ALLERGIES: No known drug allergies. CURRENT LIST OF MEDICATIONS: Tresiba insulin, NovoLog, spironolactone, omeprazole, oxycodone 5/325 q.i.d. p.r.n., OxyContin 10 mg b.i.d., duloxetine 30 mg in the morning and 60 at night, Bumex, losartan, potassium, Cardura, hydralazine, Coumadin 7.5 mg, simvastatin and Coreg. PQRS: 1. He has a history of osteoarthritis in his upper and lower extremities. He is not being treated for rheumatoid arthritis. 2. Height is 5 feet 9 inches, weight is 260 and BMI is 38. 3. Vital signs 148/69, pulse is 75, respirations 20, oxygen sat is 97. 4. Pain score is 7/10. 5. Denies dizziness. Does use a walker with assistance of walking. He has not fallen in the last 3 months. 6. The patient is on warfarin as well [place] [address] PAIN MANAGEMENT CONSULTATION Name: [facility]ENNEDY DIMAS [id number]mission: 04/28/19 Attend Phys: Wandy Smiley Discharge: Date of : 48 Report #: [id number] 7. Opiate therapy is greater than 6 weeks; therefore, an opioid signed contract is on the chart. Risk assessment is moderate. Functional assessment is 52/70. 8. Recreational drug use, he denies. He is a former smoker and does not drink alcohol. According to the prescription monitoring system, the patient is filling appropriately for his oxycodone and OxyContin. He is due to fill those today. According to the CDC guidelines, his morphine mEq is 60 MME per day. There is a urine drug screen on the chart as well. We will repeat that at his next visit. PHYSICAL EXAMINATION: GENERAL: This is a well-developed, slightly obese 68-year-old gentleman who appears his stated age. He is alert and orientated, less depressed today, at times even laughing throughout our visit. HEENT: Normocephalic, atraumatic. Extraocular eye muscles are intact. NECK: Without adenopathy or JVD. EXTREMITIES: Upper extremity strength judged to be 4/5 in his upper and lower extremities, slightly deconditioned using a walker. He has pain across his lumbosacral area that radiates into his right hip. 1+ edema in his lower extremities. IMPRESSION: 1. Symptomatic lumbar radiculopathy. History of status post lumbar decompression laminectomy. 2. Chronic pain syndrome requiring opioid medications. 3. Osteoarthritis of multiple joints. 4. Hypertension. 5. Type 2 diabetic. 6. Degenerative joint disease. 7. Spinal stenosis. 8. Deep venous thrombosis of his right leg. 9. History of alcoholism in the past. PLAN: 1. We discussed treatment options with the patient today. The patient finds his medications very beneficial with sufficient analgesia control allowing him to participate in his activities throughout his day with minimal constipation issues or side effects. The patient would like his medications refilled. We have taken the liberty of refilling his OxyContin 10 mg, #60 and Percocet 5 mg 4 times a day as needed, #120. These were written for today and 4-week release. 2. The patient does take the Voltaren gel on an as needed basis to help with his general osteoarthritic changes in his multiple joints. He does find it is beneficial since he is unable to take any oral nonsteroidals due to his Coumadin therapy. We will refill his Voltaren gel 4 grams q.i.d. #5 with one additional refill. These were sent electronically. 3. We discussed in depth his Cymbalta dosage per our records from last visit in [facility] [address] [place] [address] PAIN MANAGEMENT CONSULTATION Name: KENNEDY DIMAS Room #: REG CLI ..#: [id number] Admission: 04/28/19 Attend Phys: Wandy Smiley Discharge: Date of : 48 Report #: [id number] February, he was to take 30 mg in the morning and 60 mg at bedtime. His insurance company was unwilling to pay for 90 pills of 30 mg, so we did switch this medication taking 30mg in the morning and 60mg at night. For some reason, the patient has been taking one 60 mg in the morning and one 60 at night, a total of 120 mg. We will instruct the patient to decrease this medication back to 90 mg to see how he is doing. The patient reports he is doing quite well on the 120 with less depression and his legs are feeling better with his peripheral neuropathy that he does not know how he would respond to the 90 mg, so he will decrease back to that dose. Call us in 3 weeks to see if this is beneficial. No prescriptions needed for these medicines, there were refills at the pharmacy. 4. The patient is seen in collaboration today with Dr. Aidna Hobson. <ELECTRONICALLY SIGNED> By: Wandy Smiley 04/29/19 [id number] Wandy Smiley /sujatha
== END ==
LOC: PAIN 06:52
DX: M54.16 Radiculopathy, lumbar region (principal); G89.4 Chronic pain syndrome; M19.90 Unspecified osteoarthritis, unspecified site; I10 Essential (primary) hypertension; E11.9 Type 2 diabetes mellitus without complications; M48.061 Spinal stenosis, lumbar region without neurogenic claudication; I82.401 Acute embolism and thrombosis of unspecified deep veins of right lower extremity

== ENCOUNTER → 2019-07-02 | Outpatient (CLI) | payer OTHER ==
[~2019-07-02] VITALS: Ht 175.3 cm; Wt 113.9 kg
[~2019-07-02] MED LIST changes: +CYMBALTA60 MG PO; +JANUVIA25 MG PO; +NARCAN4 MG NARES
--- NOTE | ~2019-07-02 | HPC ---
[facility] [place] [address] PAIN MANAGEMENT CONSULTATION Name: KENNEDY DIMAS Room #: REG Trixie Torres.#: [id number] Admission: 07/02/19 Attend Phys: Antonio Hobson MD Discharge: Date of : 48 Report #: [id number] THIS REPORT FOR: cc: James Yuan MD MPH James Yuan MD MPH Antonio Hobson MD ~ CC: James Hobson DATE OF SERVICE: 07/02/2019 CHIEF COMPLAINT: Pain in the back, shoulder and hand. HISTORY: The patient is a 68-year-old gentleman who has been followed in the pain clinic because of chronic pain. He is experiencing pain in his low back. He notes that right side is more problematic than the left. It involves his lower back, hips, and is exacerbated with certain movements. Twisting can be problematic. He notes that his pain is 7/10 today. Walking can be problematic. Sometimes lying flat can be problematic. He notes his pain is somewhat alleviated by ____. Reclining is helpful. Use of his medications continues to be helpful. He is status post lumbar decompressive laminectomy. He feels that the medications are somewhat effective and he has returned today for his medications. He still has some osteoarthritis discomfort in his hands. He does have a spinal cord stimulator in place. He does have some problems with his heart. He has a history of systolic congestive heart failure. He has had blood clots in the past. He continues to monitor his blood sugars because of diabetes. He returns today for renewal of his medications. ALLERGIES: No known drug allergies. CURRENT MEDICATIONS: Percocet 5/325, oxycodone 20 mg b.i.d., Cymbalta 60 mg daily, potassium 20 mEq b.i.d., amlodipine 10 mg, Cardura 4 mg, hydralazine 100 mg, Lasix 40 mg 2 tablets t.i.d., Coumadin ____ mg daily, fish oil 1000 mg, Zocor 40 mg, Coreg 12.5 mg b.i.d., Crestor 10 mg, insulin subcutaneous sliding scale, Zoloft was discontinued. PAIN CLINIC ASSESSMENT AND PQRS: 1. The patient has a history of osteoarthritis. He has pain in his left lower extremity with osteoarthritis. His left upper extremity has osteoarthritic problems. His right lower extremity has osteoarthritic changes. The patient is not being treated for rheumatoid arthritis. 2. Height 5 feet 9 inches, weight 113 kilograms. BMI is 37.0, Blood pressure 184/71, pulse 99, respiratory rate 18, room air saturation 92%. 3. Pain intensity: 7/10. 4. Fall History: The patient has not fallen in the last 3 months. 5. Blood Thinner: The patient is on a blood thinning medicine[place] [address] PAIN MANAGEMENT CONSULTATION Name: KENNEDY DIMAS [facility] [id number] Admission: 07/02/19 Attend Phys: Antonio Hobson MD Discharge: Date of : 48 Report #: [id number] 6. Hypertension: The patient is being treated for hypertension. 7. Opioids greater than 6 weeks: The patient received medication from one source, the pain clinic. 8. Risk Assessment Tool: Low for opioid use. 9. Functional Assessment Tool: 40/70. 10. Recreational Drug Use: The patient denies. 11. Tobacco: The patient is a former smoker. 12. Alcohol. The patient denies use of alcoholic beverages at this juncture. PHYSICAL EXAMINATION: GENERAL: The patient is a well-developed, well-nourished, somewhat obese white male, appears his stated age. He is alert and oriented x 3. His affect is appropriate. Speech is fluent. The patient is accompanied by his . HEENT: Normocephalic, atraumatic. Extraocular eye muscles are intact. NECK: Without adenopathy or JVD. LUNGS: Generally clear. HEART: Regular rate. EXTREMITIES: Upper extremity muscle strength judged to be 4+/5 for the major muscle groups in the upper extremity. The patient has pain and discomfort in the right hip. He has well-healed scars in the lower portion of his back. The patient ambulates with the use of a walker and cane. IMPRESSION: 1. Symptomatic lumbar radiculopathy history, status post lumbar decompressive laminectomy. 2. Chronic pain syndrome requiring complex medical management with opioids to control pain. 3. Osteoarthritis affecting his hands. 4. Hypertension. 5. Type 2 diabetes. 6. Sepsis. 7. History of alcoholism in the past. 8. Back surgery. 9. Degenerative joint disease. 10. Spinal stenosis. 11. History of pancreatitis. 12. Deep venous thrombosis history in the right leg. 13. Inferior vena cava filter, which has been placed and was removed. RECOMMENDATIONS: We discussed treatment options with the patient. We will continue with his current medication regimen. Risks and benefits of opioid medications were again discussed. The patient finds that his medications are helpful. We will renew his medications. The patient is aware that opioids can be problematic. He has not shown any signs of withdrawal. Keeps his medications in a guarded area. He has been provided Narcan 4 mg to take should a respiratory emergency arise. He will also continue with Voltaren gel to the [facility] [address] [place] [address] PAIN MANAGEMENT CONSULTATION Name: JUDIEKENNEDY Room #: REG APOORVA Fan#: [id number] Admission: 07/02/19 Attend Phys: Antonio Hobson MD Discharge: Date of : 48 Report #: [id number] upper extremities. He will continue with duloxetine. He will also continue with OxyContin 10 mg 1 p.o. b.i.d. The patient will also continue with oxycodone 5 mg 1 p.o. q.i.d. to help control the pain. He will call us if he has any concerns. We would like to thank you for letting us participate in his care. We hope he continues to improve. By: [id number] Antonio Hobson MD /nt
[2019-07-02 08:34] VITALS: BP 184/71
--- NOTE | 2019-07-02 08:37 | NUR ---
Pain Clinic Assessment: 1. History of Osteoarthritis: B/L HANDS NECK B/L SHOULDERS B/L KNEES BACK History of Rheumatoid Arthritis: Not Applicable 2. Height: 5 ft. 9 in. 175.3 cm. Weight: 251.0 lb. oz. 113.853 kg. Patient's BMI: 37.0 3. Vital Signs: BP: 184/71 Pulse: 99 Resp: 18 Temp: 02 Sat: 92 ECG Mon: 4. Pain Intensity: 7-TODAY 5. Fall Risk: Dizziness: N Needs help standing or walking: Y Fallen in the last 3 months: N Fall risk comments: 6. Patient on Blood Thinner: WARFARIN 7. History of Hypertension: Y 8. Opioid Therapy greater than 6 weeks: Y Opiate Contract Signed: 12/02/15 9. Risk Assessment Tool Provided: MOD-7 10. Functional Assessment Tool: 11. Recreational Drug Use: Never Drug Type: Tobacco Use: Former Smoker Tobacco Type: Amount or Packs/day: How Many Years: Alcohol Use: Past use Frequency: Quant:
--- NOTE | 2019-07-02 09:44 | NUR ---
07/02/2019-PATIENT GIVEN NARCAN PRESCRIPTION PRECAUTIONARY MEASURE DUE TO HIS OPIATE REGIME. EDUCATIONAL PACKET GIVEN TO ASSIST IN ADMINISTRATION OF NARCAN IF NEEDED.
== END ==
LOC: PAIN 06:45
DX: G89.4 Chronic pain syndrome (principal); M19.042 Primary osteoarthritis, left hand; M19.041 Primary osteoarthritis, right hand; E11.9 Type 2 diabetes mellitus without complications; A41.9 Sepsis, unspecified organism; Z72.89 Other problems related to lifestyle; Z79.899 Other long term (current) drug therapy; Z98.1 Arthrodesis status

== ENCOUNTER → 2019-10-01 | Outpatient (CLI) | payer OTHER ==
[~2019-10-01] VITALS: Ht 175.3 cm; Wt 113.6 kg
[~2019-10-01] MED LIST changes: +JANUVIA50 MG PO; +MELATONIN3 M1 PO; +TRAZODONE HCL50 MG PO
[2019-10-01 08:36] VITALS: BP 140/65
--- NOTE | 2019-10-01 08:56 | NUR ---
Pain Clinic Assessment: 1. History of Osteoarthritis: B/L HANDS NECK B/L SHOULDERS B/L KNEES BACK History of Rheumatoid Arthritis: Not Applicable 2. Height: 5 ft. 9 in. 175.3 cm. Weight: 250.4 lb. oz. 113.581 kg. Patient's BMI: 37.0 3. Vital Signs: BP: 140/65 Pulse: 80 Resp: 16 Temp: 02 Sat: 96 ECG Mon: 4. Pain Intensity: 7 5. Fall Risk: Dizziness: N Needs help standing or walking: Y Fallen in the last 3 months: N Fall risk comments: 6. Patient on Blood Thinner: WARFARIN 7. History of Hypertension: Y 8. Opioid Therapy greater than 6 weeks: Y Opiate Contract Signed: 12/02/15 9. Risk Assessment Tool Provided: MOD-7 10. Functional Assessment Tool: 11. Recreational Drug Use: Never Drug Type: Tobacco Use: Former Smoker Tobacco Type: Amount or Packs/day: How Many Years: Alcohol Use: Past use Frequency: Quant:
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
== END ==
LOC: PAIN 06-09 06:48
DX: M54.5 Low back pain (principal); G89.4 Chronic pain syndrome; F11.20 Opioid dependence, uncomplicated; M19.90 Unspecified osteoarthritis, unspecified site; M48.00 Spinal stenosis, site unspecified; E11.9 Type 2 diabetes mellitus without complications; Z95.828 Presence of other vascular implants and grafts; Z87.39 Personal history of other diseases of the musculoskeletal system and connective tissue; Z87.19 Personal history of other diseases of the digestive system; Z79.899 Other long term (current) drug therapy